=== PATIENT | female | born 1975 | race Caucasian/White ===

== ENCOUNTER 2016-10-29 10:54 | Inpatient (IN) | payer OTHER ==
[~2016-10-29] VITALS: Ht 160 cm; Wt 51.3 kg
[2016-10-29 13:01] VITALS: BP 95/74
[2016-10-29] MEDS ORDERED: ENOXAPARIN 40 MG/0.4 ML (LOVENOX) SYR SC SCH (14:15)
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
[2016-10-29] MEDS ORDERED: OXYC5SOL19 PO (15:24)
[2016-10-29] MEDS ORDERED: ENOX40DI8 SQ (15:24)
--- NOTE | 2016-10-29 16:03 | Physical Therapy Daily Note ---
PT Daily Note-Current Subjective Patient in chair in therapy gym just got through with OT, states she has pain of 5/10 in her back. Has cervical collar on. Appearance Patient in bed post tx with nurse call, family in the room, has tray. Mental Status Patient Orientation: Person, Place, Situation cervical collar Transfers Functional [place] Measure 0=Not Assessed/NA 4=Minimal Assistance 1=Total Assistance 5=Supervision or Setup 2=Maximal Assistance 6=Modified [place] 3=Moderate Assistance 7=Complete IndependenceIRFPAI Quality Coding Scale 6 Independent with activity with or without an assistive device 5 Patient requires set up or clean up by helper. Patient completes activity by themselves 4 Supervision or touching assist (CGA). [place] provide cues , steadying assist 3 The helper provides less than half the effort to complete the activity 2 The helper provides more than half the effort to complete the activity 1 Dependent. The helper does all the effort to complete an activity 7 Patient refused to complete or attempt activity 9 The patient did not perform the activity before the current illness or injury 88 Not attempted due to Medical conditions or safety concerns Transfers (B, C, W/C) (FIM): 4 Scootin Rollin Supine to/from Sit: 4 Sit to/from Stand: 4 patient needed just a little help getting a leg back into bed, CGA/Amelie standing , she is pretty unsteady, cues for safety and hand placement Gait Training Gait (FIM): 2 Distance: 60' Gait Level of Assist: 4 Gait Persons Needed: 1 Gait Assistive Device: FWW patient needs CGA/Amelie for ambulation because she is very unsteady Exercises Supine Ex: Ankle pumps, Quad Set, Straight leg raise, Hip abd/add Supine Reps: 10 Treatments bed mobility and transfers, ambulation, functional strengthening Assessment Current Status: Fair Progress improving endurance, patient is very unsteady, needs close CGA/Amelie during ambulation and transfers PT Short Term Goals Short Term Goals Time Frame: November 12, 2016 Transfers (B,C,W/C) (FIM): 4 Gait (FIM): 4 Distance (FIM): 3=150 ft Gait Assistive Device: FWW PT Invasive Cardiovascular Technologist Goals Invasive Cardiovascular Technologist Goals PT Invasive Cardiovascular Technologist Goals Time Frame: Nov 26, 2016 Transfers (B,C,W/C) (FIM): 7 Sit to Lying (QC): 6 Lying-Sitting on Side/Bed(QC): 6 Sit to Stand (QC): 6 Rollin Roll Left to Right (QC): 6 Chair/Enm-sk-Xzfil Xfer(QC): 6 Car Transfer (QC): 6 Does the Patient Walk: Yes Gait (FIM): 6 Gait distance (FIM): 3=150 ft Walk 10 feet (QC): 6 Walk 10ft-Uneven Surface(QC): 6 Walk 50ft with 2 Turns (QC): 6 Walk 150 ft (QC): 6 Gait Level of Assist: 6 Gait Assistive Device: FWW Does the Pt use WC or Scooter?: No Stairs (FIM): 6 # of Steps: 12 1 Step (curb) (QC): 6 4 Steps (QC): 6 12 Steps (QC): 6 Stairs Level Of Assist: 6 Picking up an Object (QC): 5 PT Plan Problem List Problem List: Activity Tolerance, Functional Strength, Safety, Balance, Gait, Transfer, Bed Mobility Treatment/Plan Treatment Plan: Continue Plan of Care Treatment Plan: Bed Mobility, Education, Functional Activity Maurice, Functional Strength, Group Therapy, Gait, Safety, Therapeutic Exercise, Transfers Treatment Duration: Nov 26, 2016 Visits Per Week: 10-15 Safety Risks/Education Patient Education: Gait Training, Transfer Techniques, Correct Positioning, Safety Issues Teaching Recipient: Patient Teaching Methods: Demonstration, Discussion Response to Teaching: Reinforcement Needed Time/GCodes Time In: 1545 Time Out: 1600 Total Billed Treatment Time: 15 Total Billed Treatment 1 visit GT [id number] ZAMARRIPA PT October 29, 2016 16:03
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
[2016-10-29 18:10] VITALS: BP 104/72
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
[2016-10-29] MEDS: oxyCODONE 5 MG/5 ML ORAL SOLN (roxiCODONE) 5 ML UDC PO PRN (21:36)
[2016-10-30] MEDS: oxyCODONE 5 MG/5 ML ORAL SOLN (roxiCODONE) 5 ML UDC PO PRN ×4 (05:34→19:59)
[2016-10-30 05:36] VITALS: BP 114/76
[2016-10-30 06:12] LABS: BASOPHILS % (AUTO) 0 % (0-10); EOSINOPHILS # (AUTO) 0.3 10^3/uL (0.0-0.3); EOSINOPHILS % (AUTO) 3 % (0-10); LYMPHOCYTES # (AUTO) 2.4 X 10^3 (1.0-4.0); LYMPHOCYTES % (AUTO) 28 % (12-44); MEAN CORPUSCULAR HEMOGLOBIN 30 PG (25-34); MEAN CORPUSCULAR HGB CONC 34 G/DL (32-36); MEAN CORPUSCULAR VOLUME 88 FL (80-99); MEAN PLATELET VOLUME 8.8 FL (7.4-10.4); MONOCYTES # (AUTO) 0.7 X 10^3 (0.0-1.0); MONOCYTES % (AUTO) 8 % (0-12); NEUTROPHILS # (AUTO) 5.2 X 10^3 (1.8-7.8); NEUTROPHILS % (AUTO) 61 % (42-75); PLATELET COUNT 545 10^3/uL (130-400); RED BLOOD COUNT 3.96 10^6/uL (4.35-5.85); RED CELL DISTRIBUTION WIDTH 12.9 % (10.0-14.5); WHITE BLOOD COUNT 8.6 10^3/uL (4.3-11.0)
[2016-10-30 06:38] LABS: ALANINE AMINOTRANSFERASE 37 U/L (0-55); ALBUMIN 3.8 G/DL (3.2-4.5); ANION GAP 11 MMOL/L (5-14); ASPARTATE AMINO TRANSFERASE 26 U/L (5-34); BILIRUBIN,TOTAL 0.6 MG/DL (0.1-1.0); BLOOD UREA NITROGEN 17 MG/DL (7-18); BUN/CREATININE RATIO 24; CALCIUM 9.9 MG/DL (8.5-10.1); CARBON DIOXIDE 28 MMOL/L (21-32); CHLORIDE 100 MMOL/L (98-107); CREATININE SERUM 0.72 MG/DL (0.60-1.30); GFR ESTIMATED > 60; GLUCOSE 92 MG/DL (70-105); POTASSIUM 4.2 MMOL/L (3.6-5.0); SODIUM 139 MMOL/L (135-145); TOTAL PROTEIN 6.7 G/DL (6.4-8.2)
[2016-10-30] MEDS: ENOXAPARIN 40 MG/0.4 ML (LOVENOX) SYR SC SCH (08:20)
--- NOTE | 2016-10-30 09:04 | Physical Therapy Daily Note ---
PT Daily Note-Current Subjective Pt. accompanied by Mother who shares a lot about the patients recent history and family history. Pt. quiet with grimace on face but denies any significant pain. Agrees to Rx. States that we are in [place] Numeric Pain Scale: 0-No Pain Mental Status Patient Orientation: Person Attachments: Other-See Comments (j collar) pt. needs full explanation of what to do and sequence, Transfers Functional [place] Measure 0=Not Assessed/NA 4=Minimal Assistance 1=Total Assistance 5=Supervision or Setup 2=Maximal Assistance 6=Modified [place] 3=Moderate Assistance 7=Complete IndependenceIRFPAI Quality Coding Scale 6 Independent with activity with or without an assistive device 5 Patient requires set up or clean up by helper. Patient completes activity by themselves 4 Supervision or touching assist (CGA). [place] provide cues , steadying assist 3 The helper provides less than half the effort to complete the activity 2 The helper provides more than half the effort to complete the activity 1 Dependent. The helper does all the effort to complete an activity 7 Patient refused to complete or attempt activity 9 The patient did not perform the activity before the current illness or injury 88 Not attempted due to Medical conditions or safety concerns Transfers (B, C, W/C) (FIM): 4 Scootin Rollin Supine to/from Sit: 4 Sit to/from Stand: 4 Bed to/from Chair: 4 pt. with some LOB while sit to stand losing balance and plopping down a few times, not completely getting to her feet etc, needs several tries etc. Gait Training Does the Patient Walk?: Yes Gait (FIM): 4 Distance (FIM): 3=150 ft (150x2) Gait Level of Assist: 4 Gait Persons Needed: 1 Gait Assistive Device: FWW pt. veering right with all gait, needs direction for all travel with FWW Exercises Supine Ex: Ankle pumps, Quad Set, Rolling, Glut sets, Heel Slides, Short Arc Quads, Scooting, Straight leg raise, Hip abd/add Supine Reps: 15 Seated Therapy Exercises: Ankle pumps, Sit to stand, Long arc quads, Hip flexion, Hip abd/add Seated Reps: 12 NuStep Minutes: 10 NuStep Workload: 2 Assessment Current Status: Good Progress PT Short Term Goals Short Term Goals Time Frame: November 12, 2016 Transfers (B,C,W/C) (FIM): 4 Gait (FIM): 4 Distance (FIM): 3=150 ft Gait Assistive Device: FWW PT Supervisor Sample Goals Senior Living Goals PT Supervisor Sample Goals Time Frame: Nov 26, 2016 Transfers (B,C,W/C) (FIM): 7 Sit to Lying (QC): 6 Lying-Sitting on Side/Bed(QC): 6 Sit to Stand (QC): 6 Rollin Roll Left to Right (QC): 6 Chair/Egf-yz-[id number] Xfer(QC): 6 Car Transfer (QC): 6 Does the Patient Walk: Yes Gait (FIM): 6 Gait distance (FIM): 3=150 ft Walk 10 feet (QC): 6 Walk 10ft-Uneven Surface(QC): 6 Walk 50ft with 2 Turns (QC): 6 Walk 150 ft (QC): 6 Gait Level of Assist: 6 Gait Assistive Device: FWW Does the Pt use WC or Scooter?: No Stairs (FIM): 6 # of Steps: 12 1 Step (curb) (QC): 6 4 Steps (QC): 6 12 Steps (QC): 6 Stairs Level Of Assist: 6 Picking up an Object (QC): 5 PT Plan Treatment/Plan Treatment Plan: Continue Plan of Care Treatment Plan: Bed Mobility, Education, Functional Activity Maurice, Functional Strength, Group Therapy, Gait, Safety, Therapeutic Exercise, Transfers Treatment Duration: Nov 26, 2016 Visits Per Week: 10-15 Safety Risks/Education Patient Education: Gait Training, Transfer Techniques, Correct Positioning, Disease Process (discussed the fallout of TBI and what our goals would be etc), Safety Issues Teaching Recipient: Patient Teaching Methods: Demonstration, Discussion Response to Teaching: Verbalize Understanding, Return Demonstration, Reinforcement Needed Time/GCodes Time In: 800 Time Out: 900 Total Billed Treatment Time: 60 Total Billed Treatment 1,FA25m,GT20,EX15 G Codes Necessary: MARTIN [place] LEAD JANITOR October 30, 2016 09:04
--- NOTE | 2016-10-30 09:34 | PM&R Post Admission Assessment ---
Post Admission Physician Asses The preadmission screen agrees with the post admission assessment that the patient is a good candidate for inpatient rehabilitation. The patient will have a comprehensive program of inpatient rehabilitation with a goal of maximizing level of functional independence prior to discharge home with family. The patient will have PT/OT ninety minutes per day, each discipline, five days a week for a duration of 2 weeks for gait strengthening, conditioning, balance, ADLs, any patient/family/caregiver training necessary. Speech therapy to do cognitive assessment and treat as indicted. Rehabilitation nursing to assist with bowel, bladder, skin, wound care, medication administration, pain management. Director Information to assist with discharge planning, community reentry. Lovenox SUBQ for DVT prophylaxis. She appears to be well motivated to participate in three hours of therapy a day. She should be able to tolerate three hours of therapy a day from a medical standpoint. She should benefit from the three hours of therapy a day. She has a reasonable discharge plan, reasonable discharge rehabilitation goals and a supportive family. She has various comorbidities that need to be closely monitored with medications and treatments adjusted on a daily basis as needed. These include: Back pain Hx of substance abuse Hx of abuse Barriers to discharge for this patient who had been independent prior to this are for her to be modified independent to supervision for ADLs and mobility skills prior to discharge home with family, so as to lessen the burden of the caregivers. Risks for this patient include: 1. Fall 2. Fracture 3. DVT 4. Pulmonary embolism 5. Wound infection 6. Skin breakdown 7. Contractures 8. Poorly controlled pain 9. Urinary retention 10. UTI 11. Respiratory infection 12. Aspiration Estimated Length of Stay: 14 days Prognosis: Rehab prognosis appears good for goal of discharge home with family modified independent to supervision for ADLs and mobility skills. Will ask [facility] to see patient as well Will check on patient obtaining a [place] medical card so that she may have some medical insurance upon discharge so as to facilitate Medical f/u upon discharge from rehab CINDY HUTTON MD October 30, 2016 09:34
--- NOTE | 2016-10-30 10:17 | Speech Therapy Daily Note ---
Speech Daily Progress Note Subjective The patient was seated upright in the recliner upon entrance. The patient's mother was at bedside. The patient greeted the clinician appropriately and was agreeable to participation in cognitive treatment on this date. Objective Assessment of Language Related Functional Activities (CARLOS) was initiated on this date with the below results: - Telling Time: The patient was asked to read the time on an analog clock. With mild clinician verbal prompting (to recall the use of the hands), the patient demonstrated 50% accuracy. - Using a Calendar: The patient demonstrated 100% accuracy with calendar tasks on this date, independently. - Reading Instructions: The patient demonstrated 50% accuracy with mild clinician verbal prompting throughout simple instruction tasks (reading recipes , following safety information). Orientation: The patient was oriented to month, day of week, and year ( independently). The patient used the in-room white board for identification of date. This is a great improvement from the prior day where the patient believed the month was July. Assessment Assessment Current Status: Good Progress Treatment Plan Continue Plan of Care Communication Comprehension: 4 Expression: 4 Social Cognition Social Interaction: 6 Problem Solvin Memory: 4 Speech Short Term Goals Short Term Goals Short Term Goals 1. The patient will display 90% accuracy with simple orientation information with the use of an external aide. 2. The patient will demonstrate 90% accuracy with safety problem solving, independently. 3. The patient will attend to a therapy task for a period of three minutes ( uninterrupted). 4. The patient will display 80% accuracy with structured word-finding tasks with mild clinician verbal cueing. Time Frame-STG: Two Weeks Speech Digital Media Planner Goals Digital Media Planner Goals 1. The patient will demonstrate improved cognitive linguistic skills for increased function and safety with ADL's in the least restrictive setting. Comprehension: 4 Expression: 4 Social Interaction: 6 Problem Solvin Memory: 4 Speech-Plan Treatment Plan Speech Therapy Treatment Plan: Continue Plan of Care Continue skilled speech pathology intervention to target functional cognition ( memory). Treatment Duration: Nov 26, 2016 # of days/week Four to five. Visits Per Week: Four to five. Minutes/Day (M-F): 30 Rehab Potential: Good Safety Risks/Education Teaching Recipient: Patient, Family Teaching Methods: Discussion Response to Teaching: Verbalize Understanding Education Topics Provided: Plan, Results, Recommendations Time Speech Therapy Time In: 09:15 Speech Therapy Time Out: 09:45 Total Billed Time: 30 Billed Treatment Time 1, HERMINIA HORN October 30, 2016 10:17
--- NOTE | 2016-10-30 11:16 | Occupational Ther Daily Note ---
OT Current Status-Daily Note Subjective Pt seen in room, up in recliner, agreeable to OT. Pt reported upper back pain but did not describe it. Appearance Alert, cooperative, more animated Mental Status/Objective Functional [place] Measure 0=Not Assessed/NA 4=Minimal Assistance 1=Total Assistance 5=Supervision or Setup 2=Maximal Assistance 6=Modified [place] 3=Moderate Assistance 7=Complete [place] ADL-Treatment Pt told speech therapist earlier that she was going to get a shower today but did not recall this when OT entered room. Pt showered with cervical collar on except needed off to remove her shirt and sports bra, to wash and dry neck and to change pads to dry ones. Functional [place] Measure 0=Not Assessed/NA 4=Minimal Assistance 1=Total Assistance 5=Supervision or Setup 2=Maximal Assistance 6=Modified [place] 3=Moderate Assistance 7=Complete IndependenceIRFPAI Quality Coding Scale 6 Independent with activity with or without an assistive device 5 Patient requires set up or clean up by helper. Patient completes activity by themselves 4 Supervision or touching assist (CGA). [place] provide cues , steadying assist 3 The helper provides less than half the effort to complete the activity 2 The helper provides more than half the effort to complete the activity 1 Dependent. The helper does all the effort to complete an activity 7 Patient refused to complete or attempt activity 9 The patient did not perform the activity before the current illness or injury 88 Not attempted due to Medical conditions or safety concerns Eating (FIM): 5 (Pt report) Eating (QC): 5 Grooming (FIM): 5 (SBA standing at sink to brush teeth (balancing with counter top and FWW). Washed face and hands in shower. Brushed hair setup. No makeup applied) Oral Hygiene (QC): 4 (SBA) Bathing (FIM): 4 (Pt washed and dried all parts but needed CGA when standing to wash bottom, due to decreased balance. Shower bench, grab bars, hand held shower. Skilled cues and supervision to sit to bathe.) Shower/Bathe Self (QC): 4 Upper Body (FIM): 4 (Needed a little help to get sports bra and t shirt off over cervical collar so collar removed. Able to get shirt on over collar with setup. Also able to hook bra in front and turn it around) Upper Body Dressing (QC): 4 Lower Body Dressing (FIM): 4 (CGA when standing to pull pants up, FWW. Able to get legs into pants and pull them up herself, CGA. Able to get slipper socks off and on setup) Lower Body Dressing (QC): 4 On/Off Footwear (QC): 5 Transfers (B, C, W/C) (FIM): 4 (CGA, FWW. SKilled cues for hand placement. ) Shower Transfer(FIM): 4 (CGA, pt educ for hand placement. Shower bench, grab bars) Other Treatment Pt walked with CGA, FWW to gym (walker tended to veer to the right). Stand to sit with CGA,chair with arms. Vision screened, with no problems noted with visual field, convergence, tracking. Pt reported no double vision. Pt did 10 minutes bilat UE exercise on arm bike, with a couple brief breaks, to strengthen arms and to help with L elbow and shoulder movement. Pt seems to be more comfortable extending elbow during activities. Pt needed skilled cues for hand placement to stand. Pt walked back to room, CGA, FWW and transferred into bed with CGA. Pt left up in bed, 4 rails up, bed alarm on, all needs met. Education OT Patient Education: Exercise program, Modified ADL techniques, Progress toward Goal/Update tx plan, Purpose of tx/functional activities, Reviewed precautions, Safety issues, Transfer techniques Teaching Recipient: Patient Teaching Methods: Demonstration, Discussion Response to Teaching: Verbalize Understanding, Return Demonstration, Reinforcement Needed OT Short Term Goals Short Term Goals Time Frame: November 12, 2016 Grooming(FIM): 5 Toileting(FIM): 5 Toilet/Commode Transfer(FIM): 5 Additional Short Term Goals: 2-Verbalize Understanding, 3-ImproveStrength/Maurice 1=Demonstrate adherence to instructed precautions during ADL tasks. 2=Patient will verbalize/demonstrate understanding of assistive devices/ modifications for ADL. 3=Patient will improve strength/tolerance for activity to enable patient to perform ADL's. OT Analytical Engineer Goals [facility] Goals Time Frame: Nov 26, 2016 Eating (FIM): 6 Eating (QC): 6 Groomin Oral Hygiene (QC): 6 Bathing(FIM): 6 Shower/Bathe Self (QC): 6 Upper Body Dressing(FIM): 6 Upper Body Dressing (QC): 6 Lower Body Dressing(FIM): 6 Lower Body Dressing (QC): 6 On/Off Footwear (QC): 6 Toileting(FIM): 6 Toileting Hygiene (QC): 6 Toilet/Commode Transfer(FIM): 6 Toilet/Commode Transfer (QC): 6 Shower Transfer(FIM): 6 Comprehension(FIM): 4 Expression (FIM): 4 Social Interaction(FIM): 6 Problem Solving(FIM): 4 Memory(FIM): 4 Additional Goals: 2-Verbalize Understanding, 3-ImproveStrength/Maurice 1=Demonstrate adherence to instructed precautions during ADL tasks. 2=Patient will verbalize/demonstrate understanding of assistive devices/ modifications for ADL. 3=Patient will improve strength/tolerance for activity to enable patient to perform ADL's. OT Education/Plan Problem List/Assessment Pt would benefit from skilled OT to increase her independence in basic self care to allow her to safely return to her home to live with family and to decrease caregiver burden. Discharge Recommendations Plan/Recommendations: Continue POC Treatment Plan/Plan of Care Patient would benefit from OT for education, treatment and training to promote independence in ADL's, mobility, safety and/or upper extremity function for ADL' s. Plan of Care: ADL Retraining, Functional Mobility, Group Exercise/Act as Ind ( education, exercise, memory, activity tolerance, socialization, problem solving) , UE Funct Exercise/Act, UE Neuromus Re-Ed/Coord Treatment Duration: Nov 26, 2016 Visits Per Week: 10-11 Minutes/Day (M-F): 75-90 Minutes/Day (Sat/[place]): PRN Agreement: Yes Rehab Potential: Good Time/GCodes Start Time: 09:45 Stop Time: 11:00 Total Time Billed (hr/min): 75 Billed Treatment Time visit, 55 minutes ADL, 20 minutes exercise OSBALDO MORTON OT October 30, 2016 11:16
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
--- NOTE | 2016-10-30 13:19 | Physical Therapy Daily Note ---
PT Daily Note-Current Subjective Pt. is in bed with eyes closed . Dr Vásquez here. Pts Mother states she has been told by nursing she can assist her daughter to bathroom and back. Pain Numeric Pain Scale: 4 Location: Medial Location Body Site: Back Pain Description: Tightness Transfers Functional [place] Measure 0=Not Assessed/NA 4=Minimal Assistance 1=Total Assistance 5=Supervision or Setup 2=Maximal Assistance 6=Modified [place] 3=Moderate Assistance 7=Complete IndependenceIRFPAI Quality Coding Scale 6 Independent with activity with or without an assistive device 5 Patient requires set up or clean up by helper. Patient completes activity by themselves 4 Supervision or touching assist (CGA). [place] provide cues , steadying assist 3 The helper provides less than half the effort to complete the activity 2 The helper provides more than half the effort to complete the activity 1 Dependent. The helper does all the effort to complete an activity 7 Patient refused to complete or attempt activity 9 The patient did not perform the activity before the current illness or injury 88 Not attempted due to Medical conditions or safety concerns TRFs in out bed left and right with bed flat and no rails with SBA and cuing. Gait Training Does the Patient Walk?: Yes Distance (FIM): 3=150 ft (x2) Gait Level of Assist: 4 Gait Persons Needed: 1 Gait Assistive Device: FWW pt. continues to veer right and needs CGA and guidance Stair Training Stair Training: Handrails/: 2 handrails Stairs (FIM): 2 #of Steps: 4 Stairs: Pattern: Reciprocal Level of Assist: 4 needed skilled verbal instruction for stairs etc Exercises Supine Ex: Ankle pumps, Heel Slides, Hip abd/add Supine Reps: 8 Assessment Current Status: Good Progress PT Short Term Goals Short Term Goals Time Frame: November 12, 2016 Gait (FIM): 4 Distance (FIM): 3=150 ft Gait Assistive Device: FWW PT Textile Screen Printer Goals Longterm Goals PT Textile Screen Printer Goals Time Frame: Nov 26, 2016 Transfers (B,C,W/C) (FIM): 7 Sit to Lying (QC): 6 Lying-Sitting on Side/Bed(QC): 6 Sit to Stand (QC): 6 Rollin Roll Left to Right (QC): 6 Chair/Phe-zu-Qdjgd Xfer(QC): 6 Car Transfer (QC): 6 Does the Patient Walk: Yes Gait (FIM): 6 Gait distance (FIM): 3=150 ft Walk 10 feet (QC): 6 Walk 10ft-Uneven Surface(QC): 6 Walk 50ft with 2 Turns (QC): 6 Walk 150 ft (QC): 6 Gait Level of Assist: 6 Gait Assistive Device: FWW Does the Pt use WC or Scooter?: No Stairs (FIM): 6 # of Steps: 12 1 Step (curb) (QC): 6 4 Steps (QC): 6 12 Steps (QC): 6 Stairs Level Of Assist: 6 Picking up an Object (QC): 5 PT Plan Treatment/Plan Treatment Plan: Continue Plan of Care Treatment Plan: Bed Mobility, Education, Functional Activity Maurice, Functional Strength, Group Therapy, Gait, Safety, Therapeutic Exercise, Transfers Treatment Duration: Nov 26, 2016 Visits Per Week: 10-15 Safety Risks/Education Patient Education: Gait Training, Transfer Techniques, Steps Teaching Recipient: Patient, Family Teaching Methods: Demonstration, Discussion Response to Teaching: Verbalize Understanding, Return Demonstration, Reinforcement Needed Mother trained in use of gait belt and safe management of pt. for sup to sit TRFs as well as gait, this INSTRUMENT MECHANIC WEAP[employer] SYSTEM will need further training observing Mother to feel confident she is adept at managing her Time/GCodes Time In: 1255 Time Out: 1315 Total Billed Treatment Time: 20 Total Billed Treatment 1,FA20m G Codes Necessary: MARTIN [place] INSTRUMENT MECH[employer]IC WE[employer] SYSTEM October 30, 2016 13:19
[2016-10-30 18:39] VITALS: BP 110/72
[2016-10-31 06:11] VITALS: BP 107/69
[2016-10-31] MEDS: oxyCODONE 5 MG/5 ML ORAL SOLN (roxiCODONE) 5 ML UDC PO PRN ×3 (07:05→19:03)
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
[2016-10-31] MEDS: ENOXAPARIN 40 MG/0.4 ML (LOVENOX) SYR SC SCH (09:36)
--- NOTE | 2016-10-31 10:25 | Occupational Ther Daily Note ---
OT Current Status-Daily Note Subjective Pt alert, lying in bed. Mother present in room. Pt agreed to therapy. No c/o pain. Mental Status/Objective Patient Orientation: Person, Place, Situation Functional [place] Measure 0=Not Assessed/NA 4=Minimal Assistance 1=Total Assistance 5=Supervision or Setup 2=Maximal Assistance 6=Modified [place] 3=Moderate Assistance 7=Complete [place] ADL-Treatment Pt requested sponge bath. Pt ambulated into bathroom and sat at sink with CGA using FWW. Pt completed sponge bathe sitting at sink. Pt was able to open bottle of soap and sequence steps of bathing. SBA while pt standing to cleanse buttocks and sylvia area. After set up, pt able to dress upper/lower body with SBA. Completed oral care and grooming sitting at sink. Pt ambulated back to bed and was able to complete bed mobility with HOB slightly raised and bed rails. Functional [place] Measure 0=Not Assessed/NA 4=Minimal Assistance 1=Total Assistance 5=Supervision or Setup 2=Maximal Assistance 6=Modified [place] 3=Moderate Assistance 7=Complete IndependenceIRFPAI Quality Coding Scale 6 Independent with activity with or without an assistive device 5 Patient requires set up or clean up by helper. Patient completes activity by themselves 4 Supervision or touching assist (CGA). [place] provide cues , steadying assist 3 The helper provides less than half the effort to complete the activity 2 The helper provides more than half the effort to complete the activity 1 Dependent. The helper does all the effort to complete an activity 7 Patient refused to complete or attempt activity 9 The patient did not perform the activity before the current illness or injury 88 Not attempted due to Medical conditions or safety concerns Grooming (FIM): 6 Bathing (FIM): 5 Upper Body (FIM): 5 Lower Body Dressing (FIM): 5 Transfers (B, C, W/C) (FIM): 4 Other Treatment Pt stated it would be easier for her to sit in chair to complete fine motor and cognition tasks. Pt worked on memory tasks and was able to to match 3 pictures 5 out of 10x. Pt then worked on pinch strength and finger dexterity with matching colored clothes pins. After therapy, pt sitting in chair with call light/phone in reach. Mother present in room. OT Short Term Goals Short Term Goals Time Frame: November 12, 2016 Grooming(FIM): 5 Toileting(FIM): 5 Toilet/Commode Transfer(FIM): 5 Additional Short Term Goals: 2-Verbalize Understanding, 3-ImproveStrength/Maurice 1=Demonstrate adherence to instructed precautions during ADL tasks. 2=Patient will verbalize/demonstrate understanding of assistive devices/ modifications for ADL. 3=Patient will improve strength/tolerance for activity to enable patient to perform ADL's. OT Adult Daycare Coordinator Goals Adult Daycare Coordinator Goals Time Frame: Nov 26, 2016 Eating (FIM): 6 Eating (QC): 6 Groomin Oral Hygiene (QC): 6 Bathing(FIM): 6 Shower/Bathe Self (QC): 6 Upper Body Dressing(FIM): 6 Upper Body Dressing (QC): 6 Lower Body Dressing(FIM): 6 Lower Body Dressing (QC): 6 On/Off Footwear (QC): 6 Toileting(FIM): 6 Toileting Hygiene (QC): 6 Toilet/Commode Transfer(FIM): 6 Toilet/Commode Transfer (QC): 6 Shower Transfer(FIM): 6 Comprehension(FIM): 4 Expression (FIM): 4 Social Interaction(FIM): 6 Problem Solving(FIM): 4 Memory(FIM): 4 Additional Goals: 2-Verbalize Understanding, 3-ImproveStrength/Maurice 1=Demonstrate adherence to instructed precautions during ADL tasks. 2=Patient will verbalize/demonstrate understanding of assistive devices/ modifications for ADL. 3=Patient will improve strength/tolerance for activity to enable patient to perform ADL's. OT Education/Plan Problem List/Assessment Pt would benefit from skilled OT to increase her independence in basic self care to allow her to safely return to her home to live with family and to decrease caregiver burden. Discharge Recommendations Plan/Recommendations: Continue POC Treatment Plan/Plan of Care Patient would benefit from OT for education, treatment and training to promote independence in ADL's, mobility, safety and/or upper extremity function for ADL' s. Plan of Care: ADL Retraining, Functional Mobility, Group Exercise/Act as Ind ( education, exercise, memory, activity tolerance, socialization, problem solving) , UE Funct Exercise/Act, UE Neuromus Re-Ed/Coord Treatment Duration: Nov 26, 2016 Visits Per Week: 10-11 Minutes/Day (M-F): 75-90 Minutes/Day (Sat/[place]): PRN Agreement: Yes Rehab Potential: Good Time/GCodes Start Time: 08:00 Stop Time: 09:15 Total Time Billed (hr/min): 75 Billed Treatment Time 1 visit-ADL 4 (60 min) NM 1 (15 min) ASHANTI VEGA October 31, 2016 10:25
--- NOTE | 2016-10-31 10:31 | Physical Therapy Daily Note ---
PT Daily Note-Current Subjective Patient in chair pre tx, agrees to PT, has pain of 4/10 in her right posterior shoulder. Appearance Patient in chair post tx, she has to use the restroom and her mother will take her to do that. Mental Status Patient Orientation: Person, Place, Situation cervical collar Transfers Functional [place] Measure 0=Not Assessed/NA 4=Minimal Assistance 1=Total Assistance 5=Supervision or Setup 2=Maximal Assistance 6=Modified [place] 3=Moderate Assistance 7=Complete IndependenceIRFPAI Quality Coding Scale 6 Independent with activity with or without an assistive device 5 Patient requires set up or clean up by helper. Patient completes activity by themselves 4 Supervision or touching assist (CGA). [place] provide cues , steadying assist 3 The helper provides less than half the effort to complete the activity 2 The helper provides more than half the effort to complete the activity 1 Dependent. The helper does all the effort to complete an activity 7 Patient refused to complete or attempt activity 9 The patient did not perform the activity before the current illness or injury 88 Not attempted due to Medical conditions or safety concerns Transfers (B, C, W/C) (FIM): 4 Sit to/from Stand: 4 CGA, but occasional min assist for stand pivot transfer due to balance impairments Gait Training Gait (FIM): 4 Distance: 400', 200' Gait Level of Assist: 4 Gait Persons Needed: 1 Gait Assistive Device: FWW CGA/Amelie for balance, patient seems to have some right neglect and will veer to the right, continually needing to readjust her walker. Patient will often get her right wheel caught on obstacles either from right neglect or not being able to see directly in front of her because of the cervical collar or a combination of both. Balance Picking up an Object (QC): 4 (CGA) Exercises NuStep Minutes: 15 NuStep Workload: 5 Neuromuscular Patient performed an activity that involved finding and picking up cones from various heights and locations, one at a time and walking to put them on a counter, no assistive device, required min assist for balance Treatments transfer training, functional strengthening, balance training, ambulation Assessment Current Status: Fair Progress Patient does need an occasional rest break due to fatigue but her endurance is improving quickly PT Short Term Goals Short Term Goals Time Frame: November 12, 2016 Gait (FIM): 4 Distance (FIM): 3=150 ft Gait Assistive Device: FWW PT Intermediate Goals Intermediate Goals PT Refrigeration Engineer Goals Time Frame: Nov 26, 2016 Transfers (B,C,W/C) (FIM): 7 Sit to Lying (QC): 6 Lying-Sitting on Side/Bed(QC): 6 Sit to Stand (QC): 6 Rollin Roll Left to Right (QC): 6 Chair/Mmr-gi-Jrrls Xfer(QC): 6 Car Transfer (QC): 6 Does the Patient Walk: Yes Gait (FIM): 6 Gait distance (FIM): 3=150 ft Walk 10 feet (QC): 6 Walk 10ft-Uneven Surface(QC): 6 Walk 50ft with 2 Turns (QC): 6 Walk 150 ft (QC): 6 Gait Level of Assist: 6 Gait Assistive Device: FWW Does the Pt use WC or Scooter?: No Stairs (FIM): 6 # of Steps: 12 1 Step (curb) (QC): 6 4 Steps (QC): 6 12 Steps (QC): 6 Stairs Level Of Assist: 6 Picking up an Object (QC): 5 PT Plan Problem List Problem List: Activity Tolerance, Functional Strength, Safety, Balance, Gait, Transfer Treatment/Plan Treatment Plan: Continue Plan of Care Treatment Plan: Bed Mobility, Education, Functional Activity [place], Functional Strength, Group Therapy, Gait, Safety, Therapeutic Exercise, Transfers Treatment Duration: Nov 26, 2016 Visits Per Week: 10-15 Safety Risks/Education Patient Education: Gait Training, Transfer Techniques, Correct Positioning, Safety Issues Teaching Recipient: Patient Teaching Methods: Demonstration, Discussion Response to Teaching: Reinforcement Needed Time/GCodes Time In: 945 Time Out: 1030 Total Billed Treatment Time: 45 Total Billed Treatment 1 visit EX 15' NM 10' GT 20' JAQUAN JO PT October 31, 2016 10:31
--- NOTE | 2016-10-31 10:33 | Speech Therapy Daily Note ---
Speech Daily Progress Note Subjective The patient was seated upright in chair upon entrance. The patient greeted the clinician appropriately and was agreeable to cognitive therapy on this date. The patient's mother was present for the session. Objective CARLOS functional tasks were continued on this date with the below results: - Counting Money: The patient demonstrated 60% accuracy with moderate clinician verbal cueing while counting change and adding bill amounts. - Addressing an Envelope: The patient demonstrated 100% accuracy independently with addressing an envelope which contained her return address, as well. - Solving Daily Math Problems: The patient demonstrated 20% accuracy with moderate clinician verbal cueing with routine math problems (calculating payments, hours of sleep, etc.). The patient was provided a pencil and paper. Orientation: The patient stated the month was July and the year was 2016. Additionally, the patient believed she was in [place], [place]. The patient was reoriented by the clinician using the white-board as a demonstration and review of appropriate external aid use. Assessment Assessment Current Status: Fair Progress Treatment Plan Continue Plan of Care Communication Comprehension: 3 Expression: 4 Social Cognition Social Interaction: 4 Problem Solvin Memory: 2 Speech Short Term Goals Short Term Goals Short Term Goals 1. The patient will display 90% accuracy with simple orientation information with the use of an external aide. 2. The patient will demonstrate 90% accuracy with safety problem solving, independently. 3. The patient will attend to a therapy task for a period of three minutes ( uninterrupted). 4. The patient will display 80% accuracy with structured word-finding tasks with mild clinician verbal cueing. Time Frame-STG: Two Weeks Speech Gluing [place]man Goals Longterm Goals 1. The patient will demonstrate improved cognitive linguistic skills for increased function and safety with ADL's in the least restrictive setting. Comprehension: 4 Expression: 4 Social Interaction: 6 Problem Solvin Memory: 4 Speech-Plan Treatment Plan Speech Therapy Treatment Plan: Continue Plan of Care Continue skilled speech pathology intervention to target functional problem solving, memory, and attention. Treatment Duration: Nov 26, 2016 # of days/week Four to five. Visits Per Week: Four to five. Minutes/Day (M-F): 30 Rehab Potential: Good Safety Risks/Education Teaching Recipient: Patient, Family Teaching Methods: Demonstration, Discussion Response to Teaching: Verbalize Understanding, Return Demonstration Education Topics Provided: External Memory Strategy Time Speech Therapy Time In: 09:15 Speech Therapy Time Out: 09:45 Total Billed Time: 30 Billed Treatment Time 1, HERMINIA HORN October 31, 2016 10:33
--- NOTE | 2016-10-31 11:14 | Physical Therapy Daily Note ---
PT Daily Note-Current Subjective Patient in chair pre tx, agrees to PT, has pain of 3/10 in right posterior shoulder. Appearance Patient in bed post tx with nurse call, phone, tray, family in the room, all needs met. Mental Status Patient Orientation: Person, Place, Situation cervical collar Transfers Functional [place] Measure 0=Not Assessed/NA 4=Minimal Assistance 1=Total Assistance 5=Supervision or Setup 2=Maximal Assistance 6=Modified [place] 3=Moderate Assistance 7=Complete IndependenceIRFPAI Quality Coding Scale 6 Independent with activity with or without an assistive device 5 Patient requires set up or clean up by helper. Patient completes activity by themselves 4 Supervision or touching assist (CGA). [place] provide cues , steadying assist 3 The helper provides less than half the effort to complete the activity 2 The helper provides more than half the effort to complete the activity 1 Dependent. The helper does all the effort to complete an activity 7 Patient refused to complete or attempt activity 9 The patient did not perform the activity before the current illness or injury 88 Not attempted due to Medical conditions or safety concerns Transfers (B, C, W/C) (FIM): 4 Scootin Rollin Supine to/from Sit: 5 Sit to/from Stand: 4 cues for pushing up from armrests Gait Training Gait (FIM): 4 Distance: 1000'x2 Gait Level of Assist: 4 Gait Persons Needed: 1 Gait Assistive Device: FWW Patient needs min assist for occasional instability, tends to veer to the right with walker, needs to constantly readjust walker, patient ambulated over uneven surfaces (rugs, uneven sidewalks) Treatments bed mobility and transfers, ambulation Assessment Current Status: Fair Progress improving endurance PT Short Term Goals Short Term Goals Time Frame: November 12, 2016 Gait (FIM): 4 Distance (FIM): 3=150 ft Gait Assistive Device: FWW PT Solar Sales Rep Goals Mcfp Goals PT Solar Sales Rep Goals Time Frame: Nov 26, 2016 Transfers (B,C,W/C) (FIM): 7 Sit to Lying (QC): 6 Lying-Sitting on Side/Bed(QC): 6 Sit to Stand (QC): 6 Rollin Roll Left to Right (QC): 6 Chair/Ogw-sr-Uxnkb Xfer(QC): 6 Car Transfer (QC): 6 Does the Patient Walk: Yes Gait (FIM): 6 Gait distance (FIM): 3=150 ft Walk 10 feet (QC): 6 Walk 10ft-Uneven Surface(QC): 6 Walk 50ft with 2 Turns (QC): 6 Walk 150 ft (QC): 6 Gait Level of Assist: 6 Gait Assistive Device: FWW Does the Pt use WC or Scooter?: No Stairs (FIM): 6 # of Steps: 12 1 Step (curb) (QC): 6 4 Steps (QC): 6 12 Steps (QC): 6 Stairs Level Of Assist: 6 Picking up an Object (QC): 5 PT Plan Problem List Problem List: Activity Tolerance, Functional Strength, Safety, Balance, Gait, Transfer Treatment/Plan Treatment Plan: Continue Plan of Care Treatment Plan: Bed Mobility, Education, Functional Activity [place], Functional Strength, Group Therapy, Gait, Safety, Therapeutic Exercise, Transfers Treatment Duration: Nov 26, 2016 Visits Per Week: 10-15 Safety Risks/Education Patient Education: Gait Training, Transfer Techniques, Safety Issues Teaching Recipient: Patient Teaching Methods: Demonstration, Discussion Response to Teaching: Reinforcement Needed Time/GCodes Time In: 1040 Time Out: 1110 Total Billed Treatment Time: 30 Total Billed Treatment 1 visit GT 30' JAQUAN JO PT October 31, 2016 11:14
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
[2016-10-31 18:21] VITALS: BP 117/79
[2016-10-31] MEDS: ACETAMINOPHEN 325 MG TABLET/CAPLET (TYLENOL) PO PRN (21:55)
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
[2016-11-01 05:00] VITALS: BP 105/68
[2016-11-01] MEDS: ENOXAPARIN 40 MG/0.4 ML (LOVENOX) SYR SC SCH (07:48)
--- NOTE | 2016-11-01 08:45 | Physical Therapy Daily Note ---
PT Daily Note-Current Subjective Patient in bed pre tx, agrees to PT, has LBP of 7/10. Appearance Patient BTB post tx with nurse call, tray, bed alarm on, family in the room. Mental Status Patient Orientation: Person, Place, Situation cervical collar Transfers Functional [place] Measure 0=Not Assessed/NA 4=Minimal Assistance 1=Total Assistance 5=Supervision or Setup 2=Maximal Assistance 6=Modified [place] 3=Moderate Assistance 7=Complete IndependenceIRFPAI Quality Coding Scale 6 Independent with activity with or without an assistive device 5 Patient requires set up or clean up by helper. Patient completes activity by themselves 4 Supervision or touching assist (CGA). [place] provide cues , steadying assist 3 The helper provides less than half the effort to complete the activity 2 The helper provides more than half the effort to complete the activity 1 Dependent. The helper does all the effort to complete an activity 7 Patient refused to complete or attempt activity 9 The patient did not perform the activity before the current illness or injury 88 Not attempted due to Medical conditions or safety concerns Transfers (B, C, W/C) (FIM): 4 Scootin Rollin Supine to/from Sit: 6 Sit to/from Stand: 4 CGA with sit to stand and transfers Gait Training Gait (FIM): 4 Distance: 500'x2 Gait Level of Assist: 4 Gait Persons Needed: 1 Gait Assistive Device: FWW CGA, patient still has to constantly readjust walker because she veers to the right side Exercises NuStep Minutes: 15 NuStep Workload: 5 Treatments bed mobility and transfers, ambulation, functional strengthening Assessment Current Status: Fair Progress improved bed mobility PT Short Term Goals Short Term Goals Time Frame: November 12, 2016 Gait (FIM): 4 Distance (FIM): 3=150 ft Gait Assistive Device: FWW PT Bilingual Teacher Assistant Goals Halfway Goals PT Halfway Goals Time Frame: Nov 26, 2016 Transfers (B,C,W/C) (FIM): 7 Sit to Lying (QC): 6 Lying-Sitting on Side/Bed(QC): 6 Sit to Stand (QC): 6 Rollin Roll Left to Right (QC): 6 Chair/Tiw-pb-Gddcc Xfer(QC): 6 Car Transfer (QC): 6 Does the Patient Walk: Yes Gait (FIM): 6 Gait distance (FIM): 3=150 ft Walk 10 feet (QC): 6 Walk 10ft-Uneven Surface(QC): 6 Walk 50ft with 2 Turns (QC): 6 Walk 150 ft (QC): 6 Gait Level of Assist: 6 Gait Assistive Device: FWW Does the Pt use WC or Scooter?: No Stairs (FIM): 6 # of Steps: 12 1 Step (curb) (QC): 6 4 Steps (QC): 6 12 Steps (QC): 6 Stairs Level Of Assist: 6 Picking up an Object (QC): 5 PT Plan Problem List Problem List: Activity Tolerance, Functional Strength, Safety, Balance, Gait, Transfer Treatment/Plan Treatment Plan: Continue Plan of Care Treatment Plan: Bed Mobility, Education, Functional Activity Maurice, Functional Strength, Group Therapy, Gait, Safety, Therapeutic Exercise, Transfers Treatment Duration: Nov 26, 2016 Visits Per Week: 10-15 Minutes/Day (M-F): 60-90 Minutes/Day (Sat/[place]): prn Safety Risks/Education Patient Education: Gait Training, Transfer Techniques, Correct Positioning, Safety Issues Teaching Recipient: Patient Teaching Methods: Demonstration, Discussion Response to Teaching: Reinforcement Needed Time/GCodes Time In: 800 Time Out: 845 Total Billed Treatment Time: 45 Total Billed Treatment 1 visit EX 15' GT 30' JAQUAN JO PT November 01, 2016 08:45
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
[2016-11-01] MEDS: oxyCODONE 5 MG/5 ML ORAL SOLN (roxiCODONE) 5 ML UDC PO PRN ×2 (09:41→21:13)
--- NOTE | 2016-11-01 09:56 | Speech Therapy Daily Note ---
Speech Daily Progress Note Subjective The patient was seated upright in bed upon entrance. The patient greeted the clinician appropriately and was agreeable to participation in the cognitive treatment session. To note, the patient's mother was present at bedside. Objective Orientation: At the initiation of the session, the patient was able to state the month, year, and day of week. At the close of the session, the patient was able to state the year and day of week, however, stated the month was June. Once the patient was directed to the in-room white board, the patient was able to accurately identify the current month. Short-Term Recall: The patient was read short paragraphs (three to four sentences in length). Following the paragraphs, the patient was asked a specific question with the answer located in the recently read article. The patient demonstrated 30% accuracy with three to four elements and 80% accuracy with two element recall with moderate clinician verbal cueing. Assessment Assessment Current Status: Fair Progress Treatment Plan Continue Plan of Care Communication Comprehension: 4 Expression: 4 Social Cognition Social Interaction: 4 Problem Solvin Memory: 3 Speech Short Term Goals Short Term Goals Short Term Goals 1. The patient will display 90% accuracy with simple orientation information with the use of an external aide. 2. The patient will demonstrate 90% accuracy with safety problem solving, independently. 3. The patient will attend to a therapy task for a period of three minutes ( uninterrupted). 4. The patient will display 80% accuracy with structured word-finding tasks with mild clinician verbal cueing. Time Frame-STG: Two Weeks Speech Brood Station Manager Goals Senior Living Goals 1. The patient will demonstrate improved cognitive linguistic skills for increased function and safety with ADL's in the least restrictive setting. Comprehension: 4 Expression: 4 Social Interaction: 6 Problem Solvin Memory: 4 Speech-Plan Treatment Plan Speech Therapy Treatment Plan: Continue Plan of Care Continue skilled speech pathology intervention to target functional problem solving and memory. Treatment Duration: Nov 26, 2016 # of days/week Four to five. Visits Per Week: Four to five. Minutes/Day (M-F): 30 Rehab Potential: Good Safety Risks/Education Teaching Recipient: Patient, Family Teaching Methods: Discussion Response to Teaching: Verbalize Understanding, Return Demonstration Education Topics Provided: External Memory Aide Time Speech Therapy Time In: 08:45 Speech Therapy Time Out: 09:15 Total Billed Time: 30 Billed Treatment Time 1, HERMINIA HORN November 01, 2016 09:56
--- NOTE | 2016-11-01 10:55 | Occupational Ther Daily Note ---
OT Current Status-Daily Note Subjective Pt seen in room, up in bed, agreeable to OT and showering. No pain mentioned. Appearance Alert, cooperative, still looks to mother for direction in answering questions Mental Status/Objective Functional [place] Measure 0=Not Assessed/NA 4=Minimal Assistance 1=Total Assistance 5=Supervision or Setup 2=Maximal Assistance 6=Modified [place] 3=Moderate Assistance 7=Complete [place] ADL-Treatment Mother asked about therapeutic pass for the weekend. She was trained in putting on gait belt and using it while walking with patient during ADLs. She walked pt safely to the sink, to the gym, to the toilet and back to bed, using gait belt and FWW. She said that she felt comfortable walking with her daughter while on pass tomorrow. . Functional [place] Measure 0=Not Assessed/NA 4=Minimal Assistance 1=Total Assistance 5=Supervision or Setup 2=Maximal Assistance 6=Modified [place] 3=Moderate Assistance 7=Complete IndependenceIRFPAI Quality Coding Scale 6 Independent with activity with or without an assistive device 5 Patient requires set up or clean up by helper. Patient completes activity by themselves 4 Supervision or touching assist (CGA). [place] provide cues , steadying assist 3 The helper provides less than half the effort to complete the activity 2 The helper provides more than half the effort to complete the activity 1 Dependent. The helper does all the effort to complete an activity 7 Patient refused to complete or attempt activity 9 The patient did not perform the activity before the current illness or injury 88 Not attempted due to Medical conditions or safety concerns Grooming (FIM): 4 (CGA to SBA, standing at sink to brush teeth, FWW. Washed face and hands during shower. ) Bathing (FIM): 5 (Pt was able to wash and dry all parts, using shower bench, grab bars, hand held shower. Assist to turn water on and off. SBA when standing to wash bottom) Upper Body (FIM): 5 (Sequenced clothing correctly. She was able to get shirt off and on over cervical collar and hook bra in back.) Lower Body Dressing (FIM): 5 (SBA when standing to pull pants up, FWW. Pt educ for hand placement. Socks on without assistance) Toileting (FIM): 5 (SBA, clothing management and hygiene. Tall toilet, grab bar , FWW) Toilet/Commode Transfer (FIM): 4 (CA, tall toilet, grab bar, FWW) Other Treatment Pt education several times to push up from surface, not pull up with FWW. Pt walked CGA for safety, FWW to gym. Worked with fine motor activities with cognitive and visual perceptual components, including recreating designs in 3 dimension with 1" blocks, playing dominoes (she learned instructions quickly) and stringing 1/4" beads. All to help with increased use of bilat UEs. Pt was returned to bed, 4 rails up, mother inroom so bed alarm not on, all needs met. Education OT Patient Education: Modified ADL techniques, Progress toward Goal/Update tx plan, Purpose of tx/functional activities, Transfer techniques, Use of adapted equipment Teaching Recipient: Patient, Family (mother) Teaching Methods: Demonstration, Discussion Response to Teaching: Verbalize Understanding, Return Demonstration (mother), Reinforcement Needed OT Short Term Goals Short Term Goals Time Frame: November 12, 2016 Grooming(FIM): 5 Toileting(FIM): 5 Toilet/Commode Transfer(FIM): 5 Additional Short Term Goals: 2-Verbalize Understanding, 3-ImproveStrength/Maurice 1=Demonstrate adherence to instructed precautions during ADL tasks. 2=Patient will verbalize/demonstrate understanding of assistive devices/ modifications for ADL. 3=Patient will improve strength/tolerance for activity to enable patient to perform ADL's. OT [place] Goals [place] Goals Time Frame: Nov 26, 2016 Eating (FIM): 6 Eating (QC): 6 Groomin Oral Hygiene (QC): 6 Bathing(FIM): 6 Shower/Bathe Self (QC): 6 Upper Body Dressing(FIM): 6 Upper Body Dressing (QC): 6 Lower Body Dressing(FIM): 6 Lower Body Dressing (QC): 6 On/Off Footwear (QC): 6 Toileting(FIM): 6 Toileting Hygiene (QC): 6 Toilet/Commode Transfer(FIM): 6 Toilet/Commode Transfer (QC): 6 Shower Transfer(FIM): 6 Comprehension(FIM): 4 Expression (FIM): 4 Social Interaction(FIM): 6 Problem Solving(FIM): 4 Memory(FIM): 4 Additional Goals: 2-Verbalize Understanding, 3-ImproveStrength/Maurice 1=Demonstrate adherence to instructed precautions during ADL tasks. 2=Patient will verbalize/demonstrate understanding of assistive devices/ modifications for ADL. 3=Patient will improve strength/tolerance for activity to enable patient to perform ADL's. OT Education/Plan Problem List/Assessment Pt would benefit from skilled OT to increase her independence in basic self care to allow her to safely return to her home to live with family and to decrease caregiver burden. Discharge Recommendations Plan/Recommendations: Continue POC Treatment Plan/Plan of Care Patient would benefit from OT for education, treatment and training to promote independence in ADL's, mobility, safety and/or upper extremity function for ADL' s. Plan of Care: ADL Retraining, Functional Mobility, Group Exercise/Act as Ind ( education, exercise, memory, activity tolerance, socialization, problem solving) , UE Funct Exercise/Act, UE Neuromus Re-Ed/Coord Treatment Duration: Nov 26, 2016 Visits Per Week: 10-11 Minutes/Day (M-F): 75-90 Minutes/Day (Sat/[place]): PRN Agreement: Yes Rehab Potential: Good Time/GCodes Start Time: 09:30 Stop Time: 10:45 Total Time Billed (hr/min): 75 Billed Treatment Time visit, ADL 45, neuromotor 30 OSBALDO MORTON OT November 01, 2016 10:54
--- NOTE | 2016-11-01 13:59 | Therapy Group Daily Note ---
Therapy Daily Group Note Patient Education Topic Exercises (patient led exercises with written, illustrated cards) Exercises LE Seated Exercise, UE Exercise Other/Notes Patient ambulated with FWW SBA to and from Group activity. She actively participated with Group Therapy and was very social with all patients and staff. Patient was able to demonstrate and read the exercise cards to the Group as they performed each exercise. During the Group activity, PT educated the group on the benefits of exercise and mobility to promote healing and increase circulation. Start Time: 13:00 Stop Time: 13:40 Total Billed Treatment Time: 40 Total Billed Treatment 1 visit GRP 40 min SURENDRA SINGER PT November 01, 2016 13:59
[2016-11-01 16:41] VITALS: BP 115/80
[2016-11-01] MEDS: ACETAMINOPHEN 325 MG TABLET/CAPLET (TYLENOL) PO PRN (16:54)
[2016-11-02 06:00] VITALS: BP 107/69
[2016-11-02] MEDS: ENOXAPARIN 40 MG/0.4 ML (LOVENOX) SYR SC SCH (08:48)
[2016-11-02] MEDS: oxyCODONE 5 MG/5 ML ORAL SOLN (roxiCODONE) 5 ML UDC PO PRN ×2 (09:04→18:38)
--- NOTE | 2016-11-02 11:14 | Physical Therapy Daily Note ---
PT Daily Note-Current Subjective Pt. in bed, readily agrees to therapy. She denies pain. Mental Status Patient Orientation: Person, Place, Time, Situation cervical collar Transfers Functional [place] Measure 0=Not Assessed/NA 4=Minimal Assistance 1=Total Assistance 5=Supervision or Setup 2=Maximal Assistance 6=Modified [place] 3=Moderate Assistance 7=Complete IndependenceIRFPAI Quality Coding Scale 6 Independent with activity with or without an assistive device 5 Patient requires set up or clean up by helper. Patient completes activity by themselves 4 Supervision or touching assist (CGA). [place] provide cues , steadying assist 3 The helper provides less than half the effort to complete the activity 2 The helper provides more than half the effort to complete the activity 1 Dependent. The helper does all the effort to complete an activity 7 Patient refused to complete or attempt activity 9 The patient did not perform the activity before the current illness or injury 88 Not attempted due to Medical conditions or safety concerns Transfers (B, C, W/C) (FIM): 5 Supine to/from Sit: 6 Sit to/from Stand: 5 Gait Training Does the Patient Walk?: Yes Gait (FIM): 4 Distance (FIM): 3=150 ft Distance: 2 x 300 ft Gait Level of Assist: 4 Gait Persons Needed: 1 Gait Assistive Device: FWW good gait speed, frequent lateral deviations in path but no kyleigh LOB Exercises NuStep Minutes: 10 NuStep Workload: 5 Treatments gait, exercise Assessment Current Status: Good Progress Pt. did well with gait and exercise. She is mildly unsteady during gait requiring CGA. Pt. returned to seated position in bed, call light in reach and all needs met. PT Short Term Goals Short Term Goals Time Frame: November 12, 2016 Gait (FIM): 4 Distance (FIM): 3=150 ft Gait Assistive Device: FWW PT Product Support Engineer Goals Retirement Goals PT Product Support Engineer Goals Time Frame: Nov 26, 2016 Transfers (B,C,W/C) (FIM): 7 Sit to Lying (QC): 6 Lying-Sitting on Side/Bed(QC): 6 Sit to Stand (QC): 6 Rollin Roll Left to Right (QC): 6 Chair/Wwa-ig-Sjspd Xfer(QC): 6 Car Transfer (QC): 6 Does the Patient Walk: Yes Gait (FIM): 6 Gait distance (FIM): 3=150 ft Walk 10 feet (QC): 6 Walk 10ft-Uneven Surface(QC): 6 Walk 50ft with 2 Turns (QC): 6 Walk 150 ft (QC): 6 Gait Level of Assist: 6 Gait Assistive Device: FWW Does the Pt use WC or Scooter?: No Stairs (FIM): 6 # of Steps: 12 1 Step (curb) (QC): 6 4 Steps (QC): 6 12 Steps (QC): 6 Stairs Level Of Assist: 6 Picking up an Object (QC): 5 PT Plan Treatment/Plan Treatment Plan: Continue Plan of Care Treatment Plan: Bed Mobility, Education, Functional Activity Maurice, Functional Strength, Group Therapy, Gait, Safety, Therapeutic Exercise, Transfers Treatment Duration: Nov 26, 2016 Visits Per Week: 10-15 Minutes/Day (M-F): 60-90 Minutes/Day (Sat/[place]): prn Time/GCodes Time In: 950 Time Out: 1013 Total Billed Treatment Time: 23 Total Billed Treatment 1, GT 13', Ex 10' SHANTEL KAUR PT November 02, 2016 11:14
[2016-11-02 18:47] VITALS: BP 112/71
[2016-11-02] MEDS: ACETAMINOPHEN 325 MG TABLET/CAPLET (TYLENOL) PO PRN (21:35)
[2016-11-03 06:11] VITALS: BP 109/72
[2016-11-03] MEDS: ENOXAPARIN 40 MG/0.4 ML (LOVENOX) SYR SC SCH (08:04)
[2016-11-03] MEDS: oxyCODONE 5 MG/5 ML ORAL SOLN (roxiCODONE) 5 ML UDC PO PRN ×3 (08:04→17:52)
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
[2016-11-03 17:59] VITALS: BP 107/69
[2016-11-04 05:43] VITALS: BP 126/80
[2016-11-04] MEDS ORDERED: LACTATED RINGERS 1,000 ML IV PRN (07:31)
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
--- NOTE | 2016-11-04 08:46 | Physical Therapy Daily Note ---
PT Daily Note-Current Subjective Patient in bed pre tx, agrees to PT. Apparently she has to get an ORIF on her left elbow today. She has pain of 7/10 in her left arm and thoracic/cervical spine. Appearance Patient in bed post tx with nurse call, phone, tray, family in the room. Mental Status Patient Orientation: Person, Place, Situation Transfers Functional [place] Measure 0=Not Assessed/NA 4=Minimal Assistance 1=Total Assistance 5=Supervision or Setup 2=Maximal Assistance 6=Modified [place] 3=Moderate Assistance 7=Complete IndependenceIRFPAI Quality Coding Scale 6 Independent with activity with or without an assistive device 5 Patient requires set up or clean up by helper. Patient completes activity by themselves 4 Supervision or touching assist (CGA). [place] provide cues , steadying assist 3 The helper provides less than half the effort to complete the activity 2 The helper provides more than half the effort to complete the activity 1 Dependent. The helper does all the effort to complete an activity 7 Patient refused to complete or attempt activity 9 The patient did not perform the activity before the current illness or injury 88 Not attempted due to Medical conditions or safety concerns Transfers (B, C, W/C) (FIM): 5 Scootin Rollin Supine to/from Sit: 6 Sit to/from Stand: 5 Gait Training Gait (FIM): 5 Distance: 500'x2 Gait Level of Assist: 5 Gait Persons Needed: 1 Gait Assistive Device: FWW Balance much better, no veering to the right side, however, patient does say that she has some blurred vision on the left side. Exercises NuStep Minutes: 20 NuStep Workload: 4 Treatments bed mobility and transfers, ambulation, functional strengthening. Assessment Current Status: Fair Progress improved balance PT Short Term Goals Short Term Goals Time Frame: November 12, 2016 Gait (FIM): 4 Distance (FIM): 3=150 ft Gait Assistive Device: FWW PT Automation And Controls Manager Goals Automation And Controls Manager Goals PT Chcf Goals Time Frame: Nov 26, 2016 Transfers (B,C,W/C) (FIM): 7 Sit to Lying (QC): 6 Lying-Sitting on Side/Bed(QC): 6 Sit to Stand (QC): 6 Rollin Roll Left to Right (QC): 6 Chair/Kri-zz-Gyjho Xfer(QC): 6 Car Transfer (QC): 6 Does the Patient Walk: Yes Gait (FIM): 6 Gait distance (FIM): 3=150 ft Walk 10 feet (QC): 6 Walk 10ft-Uneven Surface(QC): 6 Walk 50ft with 2 Turns (QC): 6 Walk 150 ft (QC): 6 Gait Level of Assist: 6 Gait Assistive Device: FWW Does the Pt use WC or Scooter?: No Stairs (FIM): 6 # of Steps: 12 1 Step (curb) (QC): 6 4 Steps (QC): 6 12 Steps (QC): 6 Stairs Level Of Assist: 6 Picking up an Object (QC): 5 PT Plan Problem List Problem List: Activity Tolerance, Functional Strength, Safety, Balance, Gait, Transfer Treatment/Plan Treatment Plan: Continue Plan of Care Treatment Plan: Bed Mobility, Education, Functional Activity [place], Functional Strength, Group Therapy, Gait, Safety, Therapeutic Exercise, Transfers Treatment Duration: Nov 26, 2016 Visits Per Week: 10-15 Minutes/Day (M-F): 60-90 Minutes/Day (Sat/[place]): prn Safety Risks/Education Patient Education: Gait Training, Transfer Techniques, Correct Positioning, Safety Issues Teaching Recipient: Patient Teaching Methods: Demonstration, Discussion Response to Teaching: Reinforcement Needed Time/GCodes Time In: 800 Time Out: 845 Total Billed Treatment Time: 45 Total Billed Treatment 1 visit EX 20' GT 25' JAQUAN JO PT November 04, 2016 08:46
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
--- NOTE | 2016-11-04 09:37 | Speech Therapy Daily Note ---
Speech Daily Progress Note Subjective The patient was seated upright in bed upon entrance. The patient greeted the clinician appropriately and was agreeable to cognitive therapy on this date. Objective Safety Problem Solving: The patient was provided pictures depicting safety issues in her environment. The patient was asked to identify the safety issue and provide an appropriate solution. The patient demonstrated excellent accuracy with this task, identifying the safety issues with minimal verbal prompting from the clinician. The patient completed today's task with 90% accuracy. Orientation: Initially, the patient stated the month was June and she was in [place], [place]. The patient was able to accurately state the year, date, and day of week. At the close of the session, the patient was able to identify all orientation information accurately. External Memory Strategies: External memory strategies were discussed and reviewed on this date. Per patient, she keeps a calendar in her kitchen that she checks daily, as well as, the note cards with appointment reminders (she places on fridge). Additionally, the patient follows a routine which includes specific time for caring for specific farm animals, as well as, meal times for her children. At this time, the patient does not use a pill box at home as she does not take any medication regularly. The patient was encouraged to purchase a pill box following discharge to aid with any medication needs. Assessment Assessment Current Status: Good Progress Treatment Plan Continue Plan of Care Communication Comprehension: 4 Expression: 4 Social Cognition Social Interaction: 4 Problem Solvin Memory: 3 Speech Short Term Goals Short Term Goals Short Term Goals 1. The patient will display 90% accuracy with simple orientation information with the use of an external aide. 2. The patient will demonstrate 90% accuracy with safety problem solving, independently. 3. The patient will attend to a therapy task for a period of three minutes ( uninterrupted). 4. The patient will display 80% accuracy with structured word-finding tasks with mild clinician verbal cueing. Time Frame-STG: Two Weeks Speech Mcc Goals Contract Associate Manager Goals 1. The patient will demonstrate improved cognitive linguistic skills for increased function and safety with ADL's in the least restrictive setting. Comprehension: 4 Expression: 4 Social Interaction: 6 Problem Solvin Memory: 4 Speech-Plan Treatment Plan Speech Therapy Treatment Plan: Continue Plan of Care Continue skilled speech pathology to target functional problem solving and memory strategies. Treatment Duration: Nov 26, 2016 # of days/week Four to five. Visits Per Week: Four to five. Minutes/Day (M-F): 30 Rehab Potential: Good Safety Risks/Education Teaching Recipient: Patient Teaching Methods: Demonstration, Discussion Response to Teaching: Verbalize Understanding Education Topics Provided: External Memory Strategies Time Speech Therapy Time In: 08:55 Speech Therapy Time Out: 09:25 Total Billed Time: 30 Billed Treatment Time 1VASHTI ELIZABETH ST November 04, 2016 09:37
--- NOTE | 2016-11-04 11:19 | Occupational Ther Daily Note ---
OT Current Status-Daily Note Subjective Pt seen in room, up in bed, agreeable to OT. Pt to have ORIF L elbow later today. No pain specifically mentioned Appearance Alert, cooperative, reported pass over weekend went well. Mental Status/Objective Functional [place] Measure 0=Not Assessed/NA 4=Minimal Assistance 1=Total Assistance 5=Supervision or Setup 2=Maximal Assistance 6=Modified [place] 3=Moderate Assistance 7=Complete [place] ADL-Treatment Pt agreeable to shower. Balance walking to bathroom and during ADLs has improved but she is still a little wobbly with FWW. Functional [place] Measure 0=Not Assessed/NA 4=Minimal Assistance 1=Total Assistance 5=Supervision or Setup 2=Maximal Assistance 6=Modified [place] 3=Moderate Assistance 7=Complete IndependenceIRFPAI Quality Coding Scale 6 Independent with activity with or without an assistive device 5 Patient requires set up or clean up by helper. Patient completes activity by themselves 4 Supervision or touching assist (CGA). [place] provide cues , steadying assist 3 The helper provides less than half the effort to complete the activity 2 The helper provides more than half the effort to complete the activity 1 Dependent. The helper does all the effort to complete an activity 7 Patient refused to complete or attempt activity 9 The patient did not perform the activity before the current illness or injury 88 Not attempted due to Medical conditions or safety concerns Bathing (FIM): 5 (Supervision, SBA when standing. Washed and dried all parts, shower bench, grab bars, hand held shower. Setup to turn water on and off. Used surgical prep soap) Upper Body (FIM): 4 (Needed a little help to get sports bra off over head and arms. Dressed in hospital gown for surgery) Lower Body Dressing (FIM): 5 (SBA to doff clothing and don pants and slipper socks) Toileting (FIM): 5 (SBA to manage clothing and hygiene) Toilet/Commode Transfer (FIM): 5 (SBA, on and off tall toilet. Grab bar, FWW) Cervical collar in place except to take shirt off and to change to dry pads Other Treatment Pt walked to gym with CGA, FWW, a little wobble but no LOB observed. In gym, pt did fine motor coordination activities including finding small beads in red theraputty, manipulating and placing pegs for grooved pegboard test (not timed) - she was able to place and remove pegs with both hands. Also did playing card activities for coordination and for following directions, problem solving, memory, coordination, hand strength. She was able to sort and hold cards and play Tradono game with only occasional cues. Pt walked back to her room, CGA, FWW and got into bed without help. All needs met. Mother in room. Education OT Patient Education: Modified ADL techniques, Progress toward Goal/Update tx plan, Purpose of tx/functional activities, Safety issues Teaching Recipient: Patient Teaching Methods: Demonstration, Discussion Response to Teaching: Verbalize Understanding, Reinforcement Needed OT Short Term Goals Short Term Goals Time Frame: November 12, 2016 Grooming(FIM): 5 Toileting(FIM): 5 Toilet/Commode Transfer(FIM): 5 Additional Short Term Goals: 2-Verbalize Understanding, 3-ImproveStrength/Maurice 1=Demonstrate adherence to instructed precautions during ADL tasks. 2=Patient will verbalize/demonstrate understanding of assistive devices/ modifications for ADL. 3=Patient will improve strength/tolerance for activity to enable patient to perform ADL's. OT Chcf Goals Habilitative Interventionist Goals Time Frame: Nov 26, 2016 Eating (FIM): 6 Eating (QC): 6 Groomin Oral Hygiene (QC): 6 Bathing(FIM): 6 Shower/Bathe Self (QC): 6 Upper Body Dressing(FIM): 6 Upper Body Dressing (QC): 6 Lower Body Dressing(FIM): 6 Lower Body Dressing (QC): 6 On/Off Footwear (QC): 6 Toileting(FIM): 6 Toileting Hygiene (QC): 6 Toilet/Commode Transfer(FIM): 6 Toilet/Commode Transfer (QC): 6 Shower Transfer(FIM): 6 Comprehension(FIM): 4 Expression (FIM): 4 Social Interaction(FIM): 6 Problem Solving(FIM): 4 Memory(FIM): 4 Additional Goals: 2-Verbalize Understanding, 3-ImproveStrength/Maurice 1=Demonstrate adherence to instructed precautions during ADL tasks. 2=Patient will verbalize/demonstrate understanding of assistive devices/ modifications for ADL. 3=Patient will improve strength/tolerance for activity to enable patient to perform ADL's. OT Education/Plan Problem List/Assessment Pt would benefit from skilled OT to increase her independence in basic self care to allow her to safely return to her home to live with family and to decrease caregiver burden. Discharge Recommendations Plan/Recommendations: Continue POC Treatment Plan/Plan of Care Patient would benefit from OT for education, treatment and training to promote independence in ADL's, mobility, safety and/or upper extremity function for ADL' s. Plan of Care: ADL Retraining, Functional Mobility, Group Exercise/Act as Ind ( education, exercise, memory, activity tolerance, socialization, problem solving) , UE Funct Exercise/Act, UE Neuromus Re-Ed/Coord Treatment Duration: Nov 26, 2016 Visits Per Week: 10-11 Minutes/Day (M-F): 75-90 Minutes/Day (Sat/[place]): PRN Agreement: Yes Rehab Potential: Good Time/GCodes Start Time: 09:30 Stop Time: 10:45 Total Time Billed (hr/min): 75 Billed Treatment Time visit, ADL 35 minutes, neuromotor 40 minutes OSBALDO MORTON OT November 04, 2016 11:19
[2016-11-04] MEDS: oxyCODONE 5 MG/5 ML ORAL SOLN (roxiCODONE) 5 ML UDC PO PRN ×2 (11:28→22:58)
--- NOTE | 2016-11-04 13:31 | Physical Therapy Daily Note ---
PT Daily Note-Current Subjective Patient in bed pre tx, agrees to PT, she is still scheduled to have surgery this afternoon, patient states she has pain of 5/10 in right arm due to an IV. Appearance Patient in bed post tx with nurse call, phone, tray, family in the room. Mental Status Patient Orientation: Person, Place, Situation Transfers Functional [place] Measure 0=Not Assessed/NA 4=Minimal Assistance 1=Total Assistance 5=Supervision or Setup 2=Maximal Assistance 6=Modified [place] 3=Moderate Assistance 7=Complete IndependenceIRFPAI Quality Coding Scale 6 Independent with activity with or without an assistive device 5 Patient requires set up or clean up by helper. Patient completes activity by themselves 4 Supervision or touching assist (CGA). [place] provide cues , steadying assist 3 The helper provides less than half the effort to complete the activity 2 The helper provides more than half the effort to complete the activity 1 Dependent. The helper does all the effort to complete an activity 7 Patient refused to complete or attempt activity 9 The patient did not perform the activity before the current illness or injury 88 Not attempted due to Medical conditions or safety concerns Transfers (B, C, W/C) (FIM): 4 Scootin Rollin Supine to/from Sit: 6 Sit to/from Stand: 4 Gait Training Gait (FIM): 4 Distance: 300'x2 Gait Level of Assist: 4 Gait Persons Needed: 1 Gait Assistive Device: None Patient can be unsteady when turning, but no LOB. Needs cues for direction. Stair Training Stair Training: Handrails/: 2 handrails Stairs (FIM): 4 #of Steps: 12 Stairs: Pattern: Step to Level of Assist: 4 CGA, cues for safety and foot placement Exercises LAQ alternating for 5 min with 2# ankle weights. Treatments bed mobility and transfers, ambulation, functional strengthening, stair training Assessment Current Status: Fair Progress improved ambulation PT Short Term Goals Short Term Goals Time Frame: November 12, 2016 Gait (FIM): 4 Distance (FIM): 3=150 ft Gait Assistive Device: FWW PT Community Health Program Representative Goals Community Health Program Representative Goals PT Community Health Program Representative Goals Time Frame: Nov 26, 2016 Transfers (B,C,W/C) (FIM): 7 Sit to Lying (QC): 6 Lying-Sitting on Side/Bed(QC): 6 Sit to Stand (QC): 6 Rollin Roll Left to Right (QC): 6 Chair/Ijq-kx-Rulye Xfer(QC): 6 Car Transfer (QC): 6 Does the Patient Walk: Yes Gait (FIM): 6 Gait distance (FIM): 3=150 ft Walk 10 feet (QC): 6 Walk 10ft-Uneven Surface(QC): 6 Walk 50ft with 2 Turns (QC): 6 Walk 150 ft (QC): 6 Gait Level of Assist: 6 Gait Assistive Device: FWW Does the Pt use WC or Scooter?: No Stairs (FIM): 6 # of Steps: 12 1 Step (curb) (QC): 6 4 Steps (QC): 6 12 Steps (QC): 6 Stairs Level Of Assist: 6 Picking up an Object (QC): 5 PT Plan Problem List Problem List: Activity Tolerance, Functional Strength, Safety, Balance, Gait, Transfer Treatment/Plan Treatment Plan: Continue Plan of Care Treatment Plan: Bed Mobility, Education, Functional Activity [place], Functional Strength, Group Therapy, Gait, Safety, Therapeutic Exercise, Transfers Treatment Duration: Nov 26, 2016 Visits Per Week: 10-15 Minutes/Day (M-F): 60-90 Minutes/Day (Sat/[place]): prn Safety Risks/Education Patient Education: Gait Training, Transfer Techniques, Steps, Correct Positioning, Safety Issues Teaching Recipient: Patient Teaching Methods: Demonstration, Discussion Response to Teaching: Reinforcement Needed Time/GCodes Time In: 1300 Time Out: 1330 Total Billed Treatment Time: 30 Total Billed Treatment 1 visit GT 30' JAQUAN JO PT November 04, 2016 13:31
[2016-11-04] MEDS ORDERED: morphine INJ 10 MG/ML 1ML (SYR OR VIAL) ONE (14:19)
[2016-11-04] MEDS ORDERED: fentaNYL INJECTION 250 MCG/5 ML AMP ONE (14:27)
[2016-11-04] MEDS ORDERED: MIDAZOLAM 2 MG/2 ML (VERSED) VIAL ONE (14:27)
[2016-11-04] MEDS ORDERED: proPOfol 200 MG/20 ML (DIPRIVAN) VIAL IV ONE (14:27)
[2016-11-04] MEDS ORDERED: LIDOCAINE PF 2% 10 ML (XYLOCAINE) AMP ONE (14:27)
[2016-11-04] MEDS ORDERED: ONDANSETRON 4 MG/2 ML (SDV) Z0FRAN ONE (14:29)
[2016-11-04] MEDS ORDERED: LACTATED RINGERS 1,000 ML IV ONE (14:29)
[2016-11-04] MEDS ORDERED: SEVOFLURANE (ULTANE) 15 ML INHAL SOLN ONE ×3 (14:29→15:43)
[2016-11-04] MEDS ORDERED: DEXAMETHASONE PF 10 MG/ML (DECADRON) VIAL ONE (14:29)
[2016-11-04] MEDS ORDERED: ceFAZolin 1,000 MG (ANCEF) VIAL ONE (15:22)
[2016-11-04] MEDS ORDERED: ONDANSETRON 4 MG/2 ML (SDV) Z0FRAN IVP PRN (15:45)
[2016-11-04] MEDS ORDERED: ceFAZolin INJECTION 1,000 MG in NS (IVPB) 50 ML IV ONE (15:45)
--- NOTE | 2016-11-04 16:05 | Progress Note-Post Operative ---
Post-Operative Progess Note Surgeon (s)/Piercing Specialist (s) Surgeon TYRESE MERA MD Piercing Specialist: LAKEISHA Hubbard Pre-Operative Diagnosis Left Closed Olecranon Fracture Post-Operative Diagnosis Same Procedure & Operative Findings Date of Procedure 11/04/16 Procedure Performed/Findings ORIF Left Olecranon Anesthesia Type Gen LMA Estimated Blood Loss Estimated blood loss (mL): Min Specimens/Packing Specimens Removed None TYRESE MERA MD November 04, 2016 4:05 pm
[2016-11-04] MEDS: morphine INJ 10 MG/ML 1ML (SYR OR VIAL) IVP PRN ×2 (16:15→16:20)
--- NOTE | 2016-11-04 16:21 | Diagnostic Imaging Report ---
INDICATION: Proximal ulnar fracture. FINDINGS: Two views were obtained in surgery with portable intensifier showing open reduction and internal fixation of the proximal ulnar fracture with fracture fragments in good alignment. 10 seconds of fluoroscopy time was used in surgery. IMPRESSION: Anatomic alignment of proximal ulnar fracture with pins and wires in place. Dictated by: Dictated on workstation # [id number]
[2016-11-04] MEDS: MEPERIDINE (DEMEROL) INJ 50 MG/ML IVP PRN ×2 (16:35→16:50)
[2016-11-04 17:25] VITALS: BP 115/79
[2016-11-04] MEDS ORDERED: MEPERIDINE (DEMEROL) INJ 50 MG/ML ONE (19:17)
[2016-11-05 05:43] VITALS: BP 117/75
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
[2016-11-05] MEDS: oxyCODONE 5 MG/5 ML ORAL SOLN (roxiCODONE) 5 ML UDC PO PRN ×2 (06:52→20:14)
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
--- NOTE | 2016-11-05 09:45 | Physical Therapy Daily Note ---
PT Daily Note-Current Subjective Patient in bed pre tx, agrees to PT, she had an ORIF on her left olecranon yesterday and she has a soft cast and sling, she states she has pain of about 7/ 10 in her left arm. Appearance Patient in bed post tx with nurse call, phone, tray, family in the room. Mental Status Patient Orientation: Person, Place, Situation Transfers Functional [place] Measure 0=Not Assessed/NA 4=Minimal Assistance 1=Total Assistance 5=Supervision or Setup 2=Maximal Assistance 6=Modified [place] 3=Moderate Assistance 7=Complete IndependenceIRFPAI Quality Coding Scale 6 Independent with activity with or without an assistive device 5 Patient requires set up or clean up by helper. Patient completes activity by themselves 4 Supervision or touching assist (CGA). [place] provide cues , steadying assist 3 The helper provides less than half the effort to complete the activity 2 The helper provides more than half the effort to complete the activity 1 Dependent. The helper does all the effort to complete an activity 7 Patient refused to complete or attempt activity 9 The patient did not perform the activity before the current illness or injury 88 Not attempted due to Medical conditions or safety concerns Transfers (B, C, W/C) (FIM): 6 Scootin Rollin Supine to/from Sit: 6 Sit to/from Stand: 6 Gait Training Gait (FIM): 4 Distance: 600'x2 Gait Level of Assist: 4 Gait Persons Needed: 1 Gait Assistive Device: None Patient is only CGA at this time because she doesn't pay attention during ambulation, if she did she would be SBA. Patient talks constantly and is so focused on that she doesn't pay attention to anything else. She needs cues for direction. Exercises NuStep Minutes: 20 NuStep Workload: 5 Treatments ambulation bed mobility and transfers, functional strengthening Assessment Current Status: Fair Progress improving balance and endurance PT Short Term Goals Short Term Goals Time Frame: November 12, 2016 Gait (FIM): 4 Distance (FIM): 3=150 ft Gait Assistive Device: FWW PT Machine Inker Goals Machine Inker Goals PT Machine Inker Goals Time Frame: Nov 26, 2016 Transfers (B,C,W/C) (FIM): 7 Sit to Lying (QC): 6 Lying-Sitting on Side/Bed(QC): 6 Sit to Stand (QC): 6 Rollin Roll Left to Right (QC): 6 Chair/Mqz-wf-Ndgzj Xfer(QC): 6 Car Transfer (QC): 6 Does the Patient Walk: Yes Gait (FIM): 6 Gait distance (FIM): 3=150 ft Walk 10 feet (QC): 6 Walk 10ft-Uneven Surface(QC): 6 Walk 50ft with 2 Turns (QC): 6 Walk 150 ft (QC): 6 Gait Level of Assist: 6 Gait Assistive Device: FWW Does the Pt use WC or Scooter?: No Stairs (FIM): 6 # of Steps: 12 1 Step (curb) (QC): 6 4 Steps (QC): 6 12 Steps (QC): 6 Stairs Level Of Assist: 6 Picking up an Object (QC): 5 PT Plan Problem List Problem List: Activity Tolerance, Functional Strength, Safety, Balance, Gait, Transfer Treatment/Plan Treatment Plan: Continue Plan of Care Treatment Plan: Bed Mobility, Education, Functional Activity [place], Functional Strength, Group Therapy, Gait, Safety, Therapeutic Exercise, Transfers Treatment Duration: Nov 26, 2016 Visits Per Week: 10-15 Minutes/Day (M-F): 60-90 Minutes/Day (Sat/[place]): prn Safety Risks/Education Patient Education: Gait Training, Transfer Techniques, Correct Positioning, Safety Issues Teaching Recipient: Patient Teaching Methods: Demonstration, Discussion Response to Teaching: Reinforcement Needed Time/GCodes Time In: 900 Time Out: 945 Total Billed Treatment Time: 45 Total Billed Treatment 1 visit EX 20' GT 25' JAQUAN JO PT November 05, 2016 09:44
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
--- NOTE | 2016-11-05 09:55 | Speech Therapy Daily Note ---
Speech Daily Progress Note Subjective The patient was seated upright in bed upon entrance. The patient greeted the clinician appropriately and was agreeable to participation in the cognitive treatment session. Per patient's mother, the patient appears "more like Deepa" since recovering from her recent anesthesia. The patient's mother reports the patient's memory has improved and she is "talking like crazy." Objective Internal Memory Strategies: Internal memory strategies were discussed, demonstrated, and reviewed with the patient on this date. The strategies included repetition, visual imagery, and association. Per patient, she rarely uses internal strategies and prefers to "write everything down." The patient was able to recall two external memory strategies from the day prior (notes, appointment cards). Recall of Three to Four Elements: The patient was read short stories aloud and asked to respond to questions regarding the information. The patient demonstrated improved accuracy with this task when the question asked was provided and the story was re-read a second time. During this presentation, the patient demonstrated 90% accuracy with mild clinician verbal cueing. Orientation: The patient was oriented to month, day of week, date, and year ( independently). Assessment Assessment Current Status: Good Progress Treatment Plan Continue Plan of Care Communication Comprehension: 4 Expression: 4 Social Cognition Social Interaction: 5 Problem Solvin Memory: 3 Speech Short Term Goals Short Term Goals Short Term Goals 1. The patient will display 90% accuracy with simple orientation information with the use of an external aide. 2. The patient will demonstrate 90% accuracy with safety problem solving, independently. 3. The patient will attend to a therapy task for a period of three minutes ( uninterrupted). 4. The patient will display 80% accuracy with structured word-finding tasks with mild clinician verbal cueing. Time Frame-STG: Two Weeks Speech Web Analytics Developer Goals Web Analytics Developer Goals 1. The patient will demonstrate improved cognitive linguistic skills for increased function and safety with ADL's in the least restrictive setting. Comprehension: 4 Expression: 4 Social Interaction: 6 Problem Solvin Memory: 4 Speech-Plan Treatment Plan Speech Therapy Treatment Plan: Continue Plan of Care Continue skilled speech pathology to target functional memory strategies and problem solving. Treatment Duration: Nov 26, 2016 # of days/week Four to five. Visits Per Week: Four to five. Minutes/Day (M-F): 30 Rehab Potential: Good Safety Risks/Education Teaching Recipient: Patient Teaching Methods: Demonstration, Handout, Discussion Response to Teaching: Return Demonstration Education Topics Provided: Internal Memory Strategies Time Speech Therapy Time In: 08:30 Speech Therapy Time Out: 09:00 Total Billed Time: 30 Billed Treatment Time 1, HERMINIA HORN November 05, 2016 09:55
--- NOTE | 2016-11-05 11:36 | Occupational Ther Daily Note ---
OT Current Status-Daily Note Subjective Pt. asks if it is okay if her mother assists with her shower. Pt. and mother both asked by this OT if mother will be with her at home, assisting her. Both comply "yes." OT observes mother assist pt. with shower. Appearance Pt. in bed. Reports no pain. Very talkative. Mental Status/Objective Patient Orientation: Person, Place Functional [place] Measure 0=Not Assessed/NA 4=Minimal Assistance 1=Total Assistance 5=Supervision or Setup 2=Maximal Assistance 6=Modified [place] 3=Moderate Assistance 7=Complete [place] Attachments: IV ADL-Treatment Functional [place] Measure 0=Not Assessed/NA 4=Minimal Assistance 1=Total Assistance 5=Supervision or Setup 2=Maximal Assistance 6=Modified [place] 3=Moderate Assistance 7=Complete IndependenceIRFPAI Quality Coding Scale 6 Independent with activity with or without an assistive device 5 Patient requires set up or clean up by helper. Patient completes activity by themselves 4 Supervision or touching assist (CGA). [place] provide cues , steadying assist 3 The helper provides less than half the effort to complete the activity 2 The helper provides more than half the effort to complete the activity 1 Dependent. The helper does all the effort to complete an activity 7 Patient refused to complete or attempt activity 9 The patient did not perform the activity before the current illness or injury 88 Not attempted due to Medical conditions or safety concerns Grooming (FIM): 5 (Pt. able to brush her own hair.) Bathing (FIM): 4 (Mother provides min assistance in shower.) Shower/Bathe Self (QC): 4 Upper Body (FIM): 3 (Mother provides assistance to doff/don shirt/bra.) Upper Body Dressing (QC): 3 Lower Body Dressing (FIM): 3 (Pt. does attempt to don her own socks, but had mother do it when she gets them caught on her toe. Mother assists with pants.) Lower Body Dressing (QC): 3 On/Off Footwear (QC): 3 Toileting (FIM): 5 (Pt. is able to toilet self in bathroom with SBA/ supervision.) Toileting Hygiene (QC): 5 Transfers (B, C, W/C) (FIM): 5 (SBA during ambulation.) Toilet/Commode Transfer (FIM): 5 Toilet Transfer (QC): 5 Shower Transfer(FIM): 5 Other Treatment Mother assists pt. with shower/ADLs, and OT observes due to mother being person to assist at home. Pt's neck brace was removed briefly to change into dry padding. Mother is educated on this and observes OT. Mother is also educated on keeping left UE dry with trash bag and tape. Verbalizes understanding. Pt. is encouraged to do more for self, but both state that her mother will help her a lot when she gets home. Pt. verbalizes that she has some numbness in her left hand, but does not verbalize that it is weaker. However, this is noted later in gym during small bead stringing task. Requires increased time with this task. Mother and pt. are educated regarding discharge goals and plans, and need for continued speech therapy. Mother states multiple times that "this is the old Deepa." Mother does state that she is concerned regarding pt's " blurry vision" at times. Mother is educated regarding process of brain injury and visual issues. Educate her that pt. will have follow up with neurologist, and that visual issues, if she is still experiencing some blurry vision, will continued to be addressed at that time. Mother begins to explain her own visual issues, cataracts, visual acuity, etc.....All needs met in room and neither pt. nor mother have any other concerns. Education OT Patient Education: Correct positioning, Instructions don/doff splint/brace, Modified ADL techniques, Progress toward Goal/Update tx plan, Purpose of tx/ functional activities, Reviewed precautions, Rehab process, Transfer techniques Teaching Recipient: Patient Teaching Methods: Demonstration, Discussion Response to Teaching: Verbalize Understanding, Return Demonstration OT Short Term Goals Short Term Goals Time Frame: November 12, 2016 Grooming(FIM): 5 Toileting(FIM): 5 Toilet/Commode Transfer(FIM): 5 Additional Short Term Goals: 2-Verbalize Understanding, 3-ImproveStrength/Maurice 1=Demonstrate adherence to instructed precautions during ADL tasks. 2=Patient will verbalize/demonstrate understanding of assistive devices/ modifications for ADL. 3=Patient will improve strength/tolerance for activity to enable patient to perform ADL's. OT Mcc Goals Mcc Goals Time Frame: Nov 26, 2016 Eating (FIM): 6 Eating (QC): 6 Groomin Oral Hygiene (QC): 6 Bathing(FIM): 6 Shower/Bathe Self (QC): 6 Upper Body Dressing(FIM): 6 Upper Body Dressing (QC): 6 Lower Body Dressing(FIM): 6 Lower Body Dressing (QC): 6 On/Off Footwear (QC): 6 Toileting(FIM): 6 Toileting Hygiene (QC): 6 Toilet/Commode Transfer(FIM): 6 Toilet/Commode Transfer (QC): 6 Shower Transfer(FIM): 6 Comprehension(FIM): 4 Expression (FIM): 4 Social Interaction(FIM): 6 Problem Solving(FIM): 4 Memory(FIM): 4 Additional Goals: 2-Verbalize Understanding, 3-ImproveStrength/Maurice 1=Demonstrate adherence to instructed precautions during ADL tasks. 2=Patient will verbalize/demonstrate understanding of assistive devices/ modifications for ADL. 3=Patient will improve strength/tolerance for activity to enable patient to perform ADL's. OT Education/Plan Problem List/Assessment Assessment: Decreased Activ Tolerance, Decreased Safety Aware, Decreased UE Strength, Impaired Cognition, Impaired Coordination, Impaired I ADL's, Impaired Self-Care Skills, Restricted Funct UE ROM Pt would benefit from skilled OT to increase her independence in basic self care to allow her to safely return to her home to live with family and to decrease caregiver burden. Discharge Recommendations Plan/Recommendations: Continue POC Therapy D/C Recommendations: Home w/ Family Support, Occupational Therapy Home Care Treatment Plan/Plan of Care Treatment,Training & Education: Yes Patient would benefit from OT for education, treatment and training to promote independence in ADL's, mobility, safety and/or upper extremity function for ADL' s. Plan of Care: ADL Retraining, Functional Mobility, Group Exercise/Act as Ind ( education, exercise, memory, activity tolerance, socialization, problem solving) , UE Funct Exercise/Act, UE Neuromus Re-Ed/Coord Treatment Duration: Nov 26, 2016 Visits Per Week: 10-11 Minutes/Day (M-F): 75-90 Minutes/Day (Sat/[place]): PRN Agreement: Yes Rehab Potential: Good Time/GCodes Start Time: 09:55 Stop Time: 11:10 Total Time Billed (hr/min): 75 Billed Treatment Time 1, ADL x 60minutes, Ex x 15minutes SANGEETHA JOHNSON OT November 05, 2016 11:36
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
[2016-11-05] MEDS: ACETAMINOPHEN 325 MG TABLET/CAPLET (TYLENOL) PO PRN (14:19)
[2016-11-05 18:12] VITALS: BP 109/72
[2016-11-06 06:00] VITALS: BP 133/83
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
[2016-11-06 09:26] VITALS: BP 109/69
--- NOTE | 2016-11-06 09:32 | Physical Therapy Daily Note ---
PT Daily Note-Current Subjective Patient in bed pre tx, agrees to PT, has 7/10 pain in left arm. Appearance Patient in bed post tx with nurse call, phone, tray, family in the room. Mental Status Patient Orientation: Person, Place, Situation cervical collar Transfers Functional [place] Measure 0=Not Assessed/NA 4=Minimal Assistance 1=Total Assistance 5=Supervision or Setup 2=Maximal Assistance 6=Modified [place] 3=Moderate Assistance 7=Complete IndependenceIRFPAI Quality Coding Scale 6 Independent with activity with or without an assistive device 5 Patient requires set up or clean up by helper. Patient completes activity by themselves 4 Supervision or touching assist (CGA). [place] provide cues , steadying assist 3 The helper provides less than half the effort to complete the activity 2 The helper provides more than half the effort to complete the activity 1 Dependent. The helper does all the effort to complete an activity 7 Patient refused to complete or attempt activity 9 The patient did not perform the activity before the current illness or injury 88 Not attempted due to Medical conditions or safety concerns Transfers (B, C, W/C) (FIM): 5 Scootin Rollin Supine to/from Sit: 6 Sit to/from Stand: 5 Gait Training Gait (FIM): 5 Distance: 500'x2 Gait Level of Assist: 5 Gait Persons Needed: 1 Gait Assistive Device: None occasionally unsteady with turning but no LOB at this time Stair Training Stair Training: Handrails/: 2 handrails Stairs (FIM): 5 #of Steps: 12 Stairs: Pattern: Step to Level of Assist: 5 close supervision, unsteady when turning Balance Picking up an Object (QC): 4 Neuromuscular cone activity, picking up 10 cones one at a time at strategic positions requiring her to reach or bend over etc, unsteady with turning, occasionally will stub her right toes Treatments transfers, ambulation, balance training, functional strengthening Assessment Current Status: Fair Progress improving balance, stairs PT Short Term Goals Short Term Goals Time Frame: November 12, 2016 Gait (FIM): 4 Distance (FIM): 3=150 ft Gait Assistive Device: FWW PT Director Of Retention Goals Senior Care Goals PT Senior Care Goals Time Frame: Nov 26, 2016 Transfers (B,C,W/C) (FIM): 7 Sit to Lying (QC): 6 Lying-Sitting on Side/Bed(QC): 6 Sit to Stand (QC): 6 Rollin Roll Left to Right (QC): 6 Chair/Ieh-fl-Utrbc Xfer(QC): 6 Car Transfer (QC): 6 Does the Patient Walk: Yes Gait (FIM): 6 Gait distance (FIM): 3=150 ft Walk 10 feet (QC): 6 Walk 10ft-Uneven Surface(QC): 6 Walk 50ft with 2 Turns (QC): 6 Walk 150 ft (QC): 6 Gait Level of Assist: 6 Gait Assistive Device: FWW Does the Pt use WC or Scooter?: No Stairs (FIM): 6 # of Steps: 12 1 Step (curb) (QC): 6 4 Steps (QC): 6 12 Steps (QC): 6 Stairs Level Of Assist: 6 Picking up an Object (QC): 5 PT Plan Problem List Problem List: Activity Tolerance, Functional Strength, Safety, Balance, Gait, Transfer Treatment/Plan Treatment Plan: Continue Plan of Care Treatment Plan: Bed Mobility, Education, Functional Activity [place], Functional Strength, Group Therapy, Gait, Safety, Therapeutic Exercise, Transfers Treatment Duration: Nov 26, 2016 Visits Per Week: 10-15 Minutes/Day (M-F): 60-90 Minutes/Day (Sat/[place]): prn Safety Risks/Education Patient Education: Gait Training, Transfer Techniques, Steps, Correct Positioning, Safety Issues Teaching Recipient: Patient Teaching Methods: Demonstration, Discussion Response to Teaching: Reinforcement Needed Time/GCodes Time In: 845 Time Out: 930 Total Billed Treatment Time: 45 Total Billed Treatment 1 visit NM 10' EX 20' GT 15' JAQUAN JO PT November 06, 2016 09:32
[2016-11-06] MEDS: ACETAMINOPHEN 325 MG TABLET/CAPLET (TYLENOL) PO PRN ×2 (09:36→19:42)
--- NOTE | 2016-11-06 09:43 | Speech Therapy Daily Note ---
Speech Daily Progress Note Subjective The patient was sleeping upon entrance. The patient was roused with gentle verbal prompts. The patient greeted the clinician appropriately and was agreeable to cognitive therapy on this date. To note: The patient requests to be discharged no later than this Friday, 2016. The clinician agreed to share this request with the patient's care team. Objective Orientation: The patient independently recalled the month, date, year, and day of week at the beginning of the session and before the close. Short-Term Memory/Recall: The patient was read short paragraphs aloud by the clinician. The patient was asked questions regarding the paragraph immediately following. The patient demonstrated 70% accuracy with this task on this date with mild clinician verbal cueing (repetition of paragraph x1). The patient is demonstrating consistent improvement with orientation skills and functional memory. Assessment Assessment Current Status: Good Progress Treatment Plan Continue Plan of Care Communication Comprehension: 4 Expression: 4 Social Cognition Social Interaction: 4 Problem Solvin Memory: 3 Speech Short Term Goals Short Term Goals Short Term Goals 1. The patient will display 90% accuracy with simple orientation information with the use of an external aide. 2. The patient will demonstrate 90% accuracy with safety problem solving, independently. 3. The patient will attend to a therapy task for a period of three minutes ( uninterrupted). 4. The patient will display 80% accuracy with structured word-finding tasks with mild clinician verbal cueing. Time Frame-STG: Two Weeks Speech Janitorial Services Supervisor Goals Chcf Goals 1. The patient will demonstrate improved cognitive linguistic skills for increased function and safety with ADL's in the least restrictive setting. Comprehension: 4 Expression: 4 Social Interaction: 6 Problem Solvin Memory: 4 Speech-Plan Treatment Plan Speech Therapy Treatment Plan: Continue Plan of Care Continue skilled speech pathology to target functional problem solving and memory strategies. Treatment Duration: Nov 26, 2016 # of days/week Four to Five. Visits Per Week: Four to five. Minutes/Day (M-F): 30 Rehab Potential: Good Safety Risks/Education Teaching Recipient: Patient, Family Teaching Methods: Discussion Response to Teaching: Verbalize Understanding, Return Demonstration Education Topics Provided: Orientation Strategies, Memory Strategies Time Speech Therapy Time In: 08:15 Speech Therapy Time Out: 08:45 Total Billed Time: 30 Billed Treatment Time 1VASHTI ELIZABETH ST November 06, 2016 09:43
--- NOTE | 2016-11-06 11:57 | Occupational Ther Daily Note ---
OT Current Status-Daily Note Subjective Pt. states, "I'm doing fine." Appearance Pt. and mother given choice of completing ADLs with OT, or with mother at later time, as she has demonstrated this ability to do so. Pt. and mother choose to do on their own. Nursing notified. Mental Status/Objective Patient Orientation: Person, Unable to Assess Functional [place] Measure 0=Not Assessed/NA 4=Minimal Assistance 1=Total Assistance 5=Supervision or Setup 2=Maximal Assistance 6=Modified [place] 3=Moderate Assistance 7=Complete [place] ADL-Treatment Functional [place] Measure 0=Not Assessed/NA 4=Minimal Assistance 1=Total Assistance 5=Supervision or Setup 2=Maximal Assistance 6=Modified [place] 3=Moderate Assistance 7=Complete IndependenceIRFPAI Quality Coding Scale 6 Independent with activity with or without an assistive device 5 Patient requires set up or clean up by helper. Patient completes activity by themselves 4 Supervision or touching assist (CGA). [place] provide cues , steadying assist 3 The helper provides less than half the effort to complete the activity 2 The helper provides more than half the effort to complete the activity 1 Dependent. The helper does all the effort to complete an activity 7 Patient refused to complete or attempt activity 9 The patient did not perform the activity before the current illness or injury 88 Not attempted due to Medical conditions or safety concerns Transfers (B, C, W/C) (FIM): 5 Other Treatment Pt. ambulated without walker and SBA to therapy gym. Required cues on where to go. Completed series of fine motor coordination tasks using right hand, and then left fingers. Pt. able to do tasks, but does demonstrate some fatigue in hands. Wore 1 lb. wrist weight on right UE to improve overall strength. Pt. demonstrated ability to doff/don left sling for comfort. Completed series of cognitive tasks such as categorization, grouping, problem solving. Pt. did relatively well with categorization and finding things in common. Had more difficulty when more information was given to her at once. Pt. does repeat self , and it is noted at times that she will tell the same story multiple times. Has no awareness that she has already said these things. Ambulated back to room with all needs met. Education OT Patient Education: Instructions don/doff splint/brace, Instructions to caregiver, Progress toward Goal/Update tx plan, Purpose of tx/functional activities, Reviewed precautions, Rehab process, Transfer techniques Teaching Recipient: Patient, Parent Teaching Methods: Demonstration, Discussion Response to Teaching: Verbalize Understanding, Return Demonstration OT Short Term Goals Short Term Goals Time Frame: November 12, 2016 Grooming(FIM): 5 Toileting(FIM): 5 Toilet/Commode Transfer(FIM): 5 Additional Short Term Goals: 2-Verbalize Understanding, 3-ImproveStrength/Maurice 1=Demonstrate adherence to instructed precautions during ADL tasks. 2=Patient will verbalize/demonstrate understanding of assistive devices/ modifications for ADL. 3=Patient will improve strength/tolerance for activity to enable patient to perform ADL's. OT Residential Goals Residential Goals Time Frame: Nov 26, 2016 Eating (FIM): 6 Eating (QC): 6 Groomin Oral Hygiene (QC): 6 Bathing(FIM): 6 Shower/Bathe Self (QC): 6 Upper Body Dressing(FIM): 6 Upper Body Dressing (QC): 6 Lower Body Dressing(FIM): 6 Lower Body Dressing (QC): 6 On/Off Footwear (QC): 6 Toileting(FIM): 6 Toileting Hygiene (QC): 6 Toilet/Commode Transfer(FIM): 6 Toilet/Commode Transfer (QC): 6 Shower Transfer(FIM): 6 Comprehension(FIM): 4 Expression (FIM): 4 Social Interaction(FIM): 6 Problem Solving(FIM): 4 Memory(FIM): 4 Additional Goals: 2-Verbalize Understanding, 3-ImproveStrength/Maurice 1=Demonstrate adherence to instructed precautions during ADL tasks. 2=Patient will verbalize/demonstrate understanding of assistive devices/ modifications for ADL. 3=Patient will improve strength/tolerance for activity to enable patient to perform ADL's. OT Education/Plan Problem List/Assessment Assessment: Impaired Cognition, Impaired Coordination, Impaired I ADL's, Impaired Self-Care Skills Pt would benefit from skilled OT to increase her independence in basic self care to allow her to safely return to her home to live with family and to decrease caregiver burden. Discharge Recommendations Plan/Recommendations: Continue POC Therapy D/C Recommendations: Home w/ Family Support, Speech Therapy Outpatient Target Placement Home with mother support. Treatment Plan/Plan of Care Treatment,Training & Education: Yes Patient would benefit from OT for education, treatment and training to promote independence in ADL's, mobility, safety and/or upper extremity function for ADL' s. Plan of Care: ADL Retraining, Functional Mobility, Group Exercise/Act as Ind ( education, exercise, memory, activity tolerance, socialization, problem solving) , UE Funct Exercise/Act, UE Neuromus Re-Ed/Coord Treatment Duration: Nov 26, 2016 Visits Per Week: 10-11 Minutes/Day (M-F): 75-90 Minutes/Day (Sat/[place]): PRN Agreement: Yes Rehab Potential: Good Time/GCodes Start Time: 10:05 Stop Time: 11:20 Total Time Billed (hr/min): 75 Billed Treatment Time 1, FA x 5 SANGEETHA JOHNSON OT November 06, 2016 11:57
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
[2016-11-06 17:51] VITALS: BP 110/64
[2016-11-07 05:00] VITALS: BP 120/71
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
[2016-11-07] MEDS: ACETAMINOPHEN 325 MG TABLET/CAPLET (TYLENOL) PO PRN ×2 (11:28→20:47)
--- NOTE | 2016-11-07 11:46 | Physical Therapy Daily Note ---
PT Daily Note-Current Subjective Pt laying with head upright in bed upon arrival. Pt reports feeling ready to discharge tomorrow. Pt agrees to PT. Pain Numeric Pain Scale: 7 Location Body Site: Elbow Pain Description: Ache Mental Status Patient Orientation: Person, Place, Time, Situation Attachments: Other-See Comments (Neck Collar) Transfers Functional [place] Measure 0=Not Assessed/NA 4=Minimal Assistance 1=Total Assistance 5=Supervision or Setup 2=Maximal Assistance 6=Modified [place] 3=Moderate Assistance 7=Complete IndependenceIRFPAI Quality Coding Scale 6 Independent with activity with or without an assistive device 5 Patient requires set up or clean up by helper. Patient completes activity by themselves 4 Supervision or touching assist (CGA). [place] provide cues , steadying assist 3 The helper provides less than half the effort to complete the activity 2 The helper provides more than half the effort to complete the activity 1 Dependent. The helper does all the effort to complete an activity 7 Patient refused to complete or attempt activity 9 The patient did not perform the activity before the current illness or injury 88 Not attempted due to Medical conditions or safety concerns Scootin Sit to/from Stand: 5 Sit to Lying (QC): 6 Sit to Stand (QC): 5 Weight Bearing Weight Bearing Restriction: Full Weight Bearing Location Restriction: LE Bilateral Gait Training Does the Patient Walk?: Yes Distance (FIM): 3=150 ft Distance: 300' Walk 10 feet (QC): 5 Walk 50 ft with 2 Turns(QC): 5 Walk 150 ft (QC): 5 Gait Level of Assist: 5 Gait Persons Needed: 1 Gait Assistive Device: None Pt walks with safety and only slight sway when she walks. Pt's jay is normal. Wheelchair Training Does the Pt Use a Wheelchair?: No Stair Training Stair Training: Handrails/: No handrail #of Steps: 16 1 Step (curb) (QC): 5 4 Steps (QC): 5 12 Steps (QC): 5 Stairs: Pattern: Step to Level of Assist: 5 Exercises Standing: Hip Abduction, Heel/toe raises, Mini squats, Weight shifts Standing Reps: 15 NuStep Minutes: 15 NuStep Workload: 5 Treatments Pt transfers at [facility] from Supine to EOB to Standing. Pt ambulates w/o AD at [facility]. Pt uses NuStep for 15m at Workload 5 then completes Standing Ex at // bars. Pt then completes 4 sets of 4 stairs before returning to room to rest at EOB. Pt's mother discussed with pt & PT a few questions she had regarding discharge tomorrow as well as the progress pt has made during Therapy. Pt is sitting at EOB visiting with mother at end of tx with all needs met. Assessment Current Status: Good Progress Pt has made improves with strength, activity tolerance and balance during Therapy as well as ST Memory per family. PT Short Term Goals Short Term Goals Time Frame: November 12, 2016 Gait (FIM): 4 Distance (FIM): 3=150 ft Gait Assistive Device: FWW PT Road Supervisor Goals Longterm Goals PT Longterm Goals Time Frame: Nov 26, 2016 Transfers (B,C,W/C) (FIM): 7 Sit to Lying (QC): 6 Lying-Sitting on Side/Bed(QC): 6 Sit to Stand (QC): 6 Rollin Roll Left to Right (QC): 6 Chair/Cut-pu-Jrxtg Xfer(QC): 6 Car Transfer (QC): 6 Does the Patient Walk: Yes Gait (FIM): 6 Gait distance (FIM): 3=150 ft Walk 10 feet (QC): 6 Walk 10ft-Uneven Surface(QC): 6 Walk 50ft with 2 Turns (QC): 6 Walk 150 ft (QC): 6 Gait Level of Assist: 6 Gait Assistive Device: FWW Does the Pt use WC or Scooter?: No Stairs (FIM): 6 # of Steps: 12 1 Step (curb) (QC): 6 4 Steps (QC): 6 12 Steps (QC): 6 Stairs Level Of Assist: 6 Picking up an Object (QC): 5 PT Plan Problem List Problem List: Safety, Balance, Gait Treatment/Plan Treatment Plan: Continue Plan of Care Treatment Plan: Bed Mobility, Education, Functional Activity [place], Functional Strength, Group Therapy, Gait, Safety, Therapeutic Exercise, Transfers Treatment Duration: Nov 26, 2016 Visits Per Week: 10-15 Minutes/Day (M-F): 60-90 Minutes/Day (Sat/[place]): prn Safety Risks/Education Patient Education: Gait Training, Transfer Techniques, Steps, Correct Positioning, Safety Issues Teaching Recipient: Patient, Family Teaching Methods: Discussion Response to Teaching: Verbalize Understanding Time/GCodes Time In: 915 Time Out: 1000 Total Billed Treatment Time: 45 Total Billed Treatment visit, EX (20m), GT (15m) & FA (10m) BRIAN TORRES ORDER PICKER/ASSEMBLER November 07, 2016 11:46
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
--- NOTE | 2016-11-07 15:00 | Occupational Ther Daily Note ---
OT Current Status-Daily Note Subjective Pt seen in room, up in bed, agreeable to OT. No pain mentioned. Appearance Alert, cooperative Mental Status/Objective Functional [place] Measure 0=Not Assessed/NA 4=Minimal Assistance 1=Total Assistance 5=Supervision or Setup 2=Maximal Assistance 6=Modified [place] 3=Moderate Assistance 7=Complete [place] ADL-Treatment Functional [place] Measure 0=Not Assessed/NA 4=Minimal Assistance 1=Total Assistance 5=Supervision or Setup 2=Maximal Assistance 6=Modified [place] 3=Moderate Assistance 7=Complete IndependenceIRFPAI Quality Coding Scale 6 Independent with activity with or without an assistive device 5 Patient requires set up or clean up by helper. Patient completes activity by themselves 4 Supervision or touching assist (CGA). [place] provide cues , steadying assist 3 The helper provides less than half the effort to complete the activity 2 The helper provides more than half the effort to complete the activity 1 Dependent. The helper does all the effort to complete an activity 7 Patient refused to complete or attempt activity 9 The patient did not perform the activity before the current illness or injury 88 Not attempted due to Medical conditions or safety concerns Other Treatment Pt got out of bed without assistance but did need a reminder not to get out around the bed rail but lower it first. Pt walked SBA for safety to gym. Pt worked on hand strengthening and coordination with red theraputty exercises. She also manipulated graded clothespins and had difficulty with the hardest ones with her L hand. Reviewed activities and games that she could do with her family on discharge to continue working on strength and coordination. Pt c/o soreness lateral aspect of L wrist - there is a point of her plaster cast there. Provided a pad of temperfoam which she said eased the soreness. Pt walked back to room SBA and got into bed, waiting for PT. All needs met. Education OT Patient Education: Exercise program, Home exercise program, Purpose of tx/ functional activities Teaching Recipient: Patient Teaching Methods: Discussion Response to Teaching: Verbalize Understanding OT Short Term Goals Short Term Goals Time Frame: November 12, 2016 Grooming(FIM): 5 Toileting(FIM): 5 Toilet/Commode Transfer(FIM): 5 Additional Short Term Goals: 2-Verbalize Understanding, 3-ImproveStrength/Maurice 1=Demonstrate adherence to instructed precautions during ADL tasks. 2=Patient will verbalize/demonstrate understanding of assistive devices/ modifications for ADL. 3=Patient will improve strength/tolerance for activity to enable patient to perform ADL's. OT Supervisor Sandblaster Goals Fdc Goals Time Frame: Nov 26, 2016 Eating (FIM): 6 Eating (QC): 6 Groomin Oral Hygiene (QC): 6 Bathing(FIM): 6 Shower/Bathe Self (QC): 6 Upper Body Dressing(FIM): 6 Upper Body Dressing (QC): 6 Lower Body Dressing(FIM): 6 Lower Body Dressing (QC): 6 On/Off Footwear (QC): 6 Toileting(FIM): 6 Toileting Hygiene (QC): 6 Toilet/Commode Transfer(FIM): 6 Toilet/Commode Transfer (QC): 6 Shower Transfer(FIM): 6 Comprehension(FIM): 4 Expression (FIM): 4 Social Interaction(FIM): 6 Problem Solving(FIM): 4 Memory(FIM): 4 Additional Goals: 2-Verbalize Understanding, 3-ImproveStrength/Maurice 1=Demonstrate adherence to instructed precautions during ADL tasks. 2=Patient will verbalize/demonstrate understanding of assistive devices/ modifications for ADL. 3=Patient will improve strength/tolerance for activity to enable patient to perform ADL's. OT Education/Plan Problem List/Assessment Pt would benefit from skilled OT to increase her independence in basic self care to allow her to safely return to her home to live with family and to decrease caregiver burden. Discharge Recommendations Plan/Recommendations: Continue POC Treatment Plan/Plan of Care Patient would benefit from OT for education, treatment and training to promote independence in ADL's, mobility, safety and/or upper extremity function for ADL' s. Plan of Care: ADL Retraining, Functional Mobility, Group Exercise/Act as Ind ( education, exercise, memory, activity tolerance, socialization, problem solving) , UE Funct Exercise/Act, UE Neuromus Re-Ed/Coord Treatment Duration: Nov 26, 2016 Visits Per Week: 10-11 Minutes/Day (M-F): 75-90 Minutes/Day (Sat/[place]): PRN Agreement: Yes Rehab Potential: Good Time/GCodes Start Time: 13:00 Stop Time: 13:25 Total Time Billed (hr/min): 25 Billed Treatment Time visit, 25 minutes exercise OSBALDO MORTON OT November 07, 2016 15:00
--- NOTE | 2016-11-07 15:25 | Physical Therapy Daily Note ---
PT Daily Note-Current Subjective Pt laying upright in bed upon arrival. Pt agrees to PT this afternoon. Mental Status Patient Orientation: Person, Place, Time, Situation Attachments: Other-See Comments (Cervical Collar) Transfers Functional [place] Measure 0=Not Assessed/NA 4=Minimal Assistance 1=Total Assistance 5=Supervision or Setup 2=Maximal Assistance 6=Modified [place] 3=Moderate Assistance 7=Complete IndependenceIRFPAI Quality Coding Scale 6 Independent with activity with or without an assistive device 5 Patient requires set up or clean up by helper. Patient completes activity by themselves 4 Supervision or touching assist (CGA). [place] provide cues , steadying assist 3 The helper provides less than half the effort to complete the activity 2 The helper provides more than half the effort to complete the activity 1 Dependent. The helper does all the effort to complete an activity 7 Patient refused to complete or attempt activity 9 The patient did not perform the activity before the current illness or injury 88 Not attempted due to Medical conditions or safety concerns Scootin Rollin Roll Left to Right (QC): 5 Supine to/from Sit: 5 Sit to/from Stand: 6 Sit to Lying (QC): 6 Sit to Stand (QC): 6 Weight Bearing Weight Bearing Restriction: Full Weight Bearing Location Restriction: LE Bilateral Gait Training Does the Patient Walk?: Yes Distance (FIM): 3=150 ft Distance: 1200' Walk 10 feet (QC): 5 Walk 50 ft with 2 Turns(QC): 5 Walk 150 ft (QC): 5 Walking 10ft/uneven surface-QC: 5 Gait Level of Assist: 5 Gait Persons Needed: 1 Gait Assistive Device: None Pt walks with normal jay but slight drifting to R while walking but able to recover independently. Wheelchair Training Does the Pt Use a Wheelchair?: No Stair Training Stair Training: Handrails/: 1 handrail #of Steps: 4 (Outside in garden area) 1 Step (curb) (QC): 5 4 Steps (QC): 5 Stairs: Pattern: Step to Level of Assist: 5 Treatments Pt transfers from bed to standing w/o AD at SBA. Pt ambulates community distances w/o AD from DEU to [facility] Garden Area on varying surfaces, down stairs and ramp. Pt also walks through [employer] for problem solving, balance and ambulation activities. Pt returns to room at end of walk to rest at EOB with all needs met. Assessment Current Status: Good Progress Pt has increased activity tolerance, strength, balance and memory skills during Therapy. PT Short Term Goals Short Term Goals Time Frame: November 12, 2016 Gait (FIM): 4 Distance (FIM): 3=150 ft Gait Assistive Device: FWW PT Penitentiary Goals Penitentiary Goals PT [place] Supervisor Goals Time Frame: Nov 26, 2016 Transfers (B,C,W/C) (FIM): 7 Sit to Lying (QC): 6 Lying-Sitting on Side/Bed(QC): 6 Sit to Stand (QC): 6 Rollin Roll Left to Right (QC): 6 Chair/Qea-cn-Qbate Xfer(QC): 6 Car Transfer (QC): 6 Does the Patient Walk: Yes Gait (FIM): 6 Gait distance (FIM): 3=150 ft Walk 10 feet (QC): 6 Walk 10ft-Uneven Surface(QC): 6 Walk 50ft with 2 Turns (QC): 6 Walk 150 ft (QC): 6 Gait Level of Assist: 6 Gait Assistive Device: FWW Does the Pt use WC or Scooter?: No Stairs (FIM): 6 # of Steps: 12 1 Step (curb) (QC): 6 4 Steps (QC): 6 12 Steps (QC): 6 Stairs Level Of Assist: 6 Picking up an Object (QC): 5 PT Plan Problem List Problem List: Safety Treatment/Plan Treatment Plan: Continue Plan of Care Treatment Plan: Bed Mobility, Education, Functional Activity [place], Functional Strength, Group Therapy, Gait, Safety, Therapeutic Exercise, Transfers Treatment Duration: Nov 26, 2016 Visits Per Week: 10-15 Minutes/Day (M-F): 60-90 Minutes/Day (Sat/[place]): prn Safety Risks/Education Patient Education: Gait Training, Transfer Techniques, Correct Positioning, Safety Issues Teaching Recipient: Patient Teaching Methods: Discussion Response to Teaching: Verbalize Understanding Time/GCodes Time In: 1330 Time Out: 1415 Total Billed Treatment Time: 45 Total Billed Treatment visit, GT X2 (30m) & FA (15m) BRIAN TORRES LINE PRODUCER November 07, 2016 15:25
--- NOTE | 2016-11-07 16:49 | Diagnostic Imaging Report ---
EXAMINATION: Three views of the thoracic spine. INDICATION: Back pain. FINDINGS: There is satisfactory alignment of the thoracic spine. The vertebral body heights are preserved. The disc heights are also preserved. The paraspinal soft tissues appear unremarkable. IMPRESSION: Unremarkable exam. Dictated by: Dictated on workstation # [id number]
[2016-11-07 18:07] VITALS: BP 103/66
[2016-11-08 06:00] VITALS: BP 120/80
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
[2016-11-08] MEDS: ACETAMINOPHEN 325 MG TABLET/CAPLET (TYLENOL) PO PRN (08:10)
[2016-11-08] MEDS ORDERED: ACET325T49 PO (08:39)
--- NOTE | 2016-11-08 08:56 | Physical Therapy Daily Note ---
PT Daily Note-Current Subjective Pt was laying Supine in bed upon arrival. Pt reports feeling excited to discharge today. Pt agrees to PT tx. Pain Location: No Pain Reported Mental Status Patient Orientation: Person, Place, Time, Situation Transfers Functional [place] Measure 0=Not Assessed/NA 4=Minimal Assistance 1=Total Assistance 5=Supervision or Setup 2=Maximal Assistance 6=Modified [place] 3=Moderate Assistance 7=Complete IndependenceIRFPAI Quality Coding Scale 6 Independent with activity with or without an assistive device 5 Patient requires set up or clean up by helper. Patient completes activity by themselves 4 Supervision or touching assist (CGA). [place] provide cues , steadying assist 3 The helper provides less than half the effort to complete the activity 2 The helper provides more than half the effort to complete the activity 1 Dependent. The helper does all the effort to complete an activity 7 Patient refused to complete or attempt activity 9 The patient did not perform the activity before the current illness or injury 88 Not attempted due to Medical conditions or safety concerns Transfers (B, C, W/C) (FIM): 6 Scootin Rollin Roll Left to Right (QC): 6 Supine to/from Sit: 7 Sit to/from Stand: 7 Sit to Lying (QC): 6 Sit to Stand (QC): 6 Chair/Uvq-bu-Qewdn Xfer(QC): 6 Bed to/from Chair: 7 Weight Bearing Weight Bearing Restriction: Full Weight Bearing Location Restriction: LE Bilateral Gait Training Does the Patient Walk?: Yes Gait (FIM): 6 Distance (FIM): 3=150 ft Distance: 350' Walk 10 feet (QC): 6 Walk 50 ft with 2 Turns(QC): 6 Walk 150 ft (QC): 6 Walking 10ft/uneven surface-QC: 6 Gait Level of Assist: 6 Gait Persons Needed: 1 Gait Assistive Device: None Pt walks Mod I without AD. Pt has occasional drift to R while walking but pt is able to self-correct. Pt is safe while ambulating. Wheelchair Training Does the Pt Use a Wheelchair?: No Stair Training Stair Training: Handrails/: No handrail Stairs (FIM): 5 #of Steps: 12 1 Step (curb) (QC): 6 4 Steps (QC): 5 12 Steps (QC): 5 Stairs: Pattern: Step to Level of Assist: 5 Pt occasionally steadies self by touching wall or handrail but no LOB, able to steady independently. Balance Picking up an Object (QC): 5 Special Test Comments Close SBA since pt & mother had voiced dizziness occasionally when bending over. Today, pt reported no dizziness when bending over though. Treatments Pt completed transfers at Indep. with only slight difficulty rolling w/L arm in cast. Pt ambulates w/o AD at Mod I. status. Pt occasionally drifts to R but pt self-corrects. Pt completes 12 stairs at SBA, picking up object off floor & walking on varying surface Indep. Pt returns to room for bed mobility and pt completes Indep. as well. Pt left with all needs met at end of tx and discharging this morning. Assessment Current Status: Good Progress Pt doesn't have safe concerns and has made progress with transfers, mobility and activity tolerance. Pt is excited to be going home. PT Short Term Goals Short Term Goals Time Frame: November 12, 2016 Gait (FIM): 4 Distance (FIM): 3=150 ft Gait Assistive Device: FWW PT Coach Mechanic Goals Usp Goals PT Usp Goals Time Frame: Nov 26, 2016 Transfers (B,C,W/C) (FIM): 7 Sit to Lying (QC): 6 Lying-Sitting on Side/Bed(QC): 6 Sit to Stand (QC): 6 Rollin Roll Left to Right (QC): 6 Chair/Psd-va-Zunqr Xfer(QC): 6 Car Transfer (QC): 6 Does the Patient Walk: Yes Gait (FIM): 6 Gait distance (FIM): 3=150 ft Walk 10 feet (QC): 6 Walk 10ft-Uneven Surface(QC): 6 Walk 50ft with 2 Turns (QC): 6 Walk 150 ft (QC): 6 Gait Level of Assist: 6 Gait Assistive Device: FWW Does the Pt use WC or Scooter?: No Stairs (FIM): 6 # of Steps: 12 1 Step (curb) (QC): 6 4 Steps (QC): 6 12 Steps (QC): 6 Stairs Level Of Assist: 6 Picking up an Object (QC): 5 PT Plan Problem List Problem List: Balance Treatment/Plan Treatment Plan: Continue Plan of Care Treatment Plan: Bed Mobility, Education, Functional Activity Maurice, Functional Strength, Group Therapy, Gait, Safety, Therapeutic Exercise, Transfers Treatment Duration: Nov 26, 2016 Visits Per Week: 10-15 Minutes/Day (M-F): 60-90 Minutes/Day (Sat/[place]): prn Safety Risks/Education Patient Education: Gait Training, Transfer Techniques, Steps, Correct Positioning, Disease Process, Safety Issues Teaching Recipient: Patient, Family Teaching Methods: Discussion Response to Teaching: Verbalize Understanding Time/GCodes Time In: 800 Time Out: 825 Total Billed Treatment Time: 25 Total Billed Treatment visit, FA (15m) & GT (10m) BRIAN TORRES PTA November 08, 2016 08:56
--- NOTE | 2016-11-08 09:30 | Occupational Ther Daily Note ---
OT Current Status-Daily Note Subjective Pt seen in room, up in bed, agreeable to OT. No pain mentioned. Mother present throughout tx. Appearance Alert, cooperative. Looking forward to going home today. Mental Status/Objective Functional [place] Measure 0=Not Assessed/NA 4=Minimal Assistance 1=Total Assistance 5=Supervision or Setup 2=Maximal Assistance 6=Modified [place] 3=Moderate Assistance 7=Complete [place] ADL-Treatment Reminder to patient and mother that she still needs SBA when walking and standing during ADLs, for safety. Pt educ for mother on how to put pads back on cervical collar. Functional [place] Measure 0=Not Assessed/NA 4=Minimal Assistance 1=Total Assistance 5=Supervision or Setup 2=Maximal Assistance 6=Modified [place] 3=Moderate Assistance 7=Complete IndependenceIRFPAI Quality Coding Scale 6 Independent with activity with or without an assistive device 5 Patient requires set up or clean up by helper. Patient completes activity by themselves 4 Supervision or touching assist (CGA). [place] provide cues , steadying assist 3 The helper provides less than half the effort to complete the activity 2 The helper provides more than half the effort to complete the activity 1 Dependent. The helper does all the effort to complete an activity 7 Patient refused to complete or attempt activity 9 The patient did not perform the activity before the current illness or injury 88 Not attempted due to Medical conditions or safety concerns Eating (FIM): 7 (Able top open packages, cut food. No difficulties feeding herself.) Eating (QC): 6 Grooming (FIM): 5 (SBA for safety when standing at sink to brush teeth and hair. Washed face and hands in shower. ) Oral Hygiene (QC): 4 (SBA) Bathing (FIM): 4 (Setup to put plastic bag on L arm (splinted). Help to wash R arm since L arm in plastic bag. Setup for rest of shower, SBA when standing to wash. Washed and dried all other parts. SHower bench, grab bars, hand held shower. ) Shower/Bathe Self (QC): 3 Upper Body (FIM): 5 (Setup. Took bra off and put clean one on with mod technique of hooking it in front. Skilled cues to get shirt off (good arm first ) - able to get it off cervical collar. ) Upper Body Dressing (QC): 5 Lower Body Dressing (FIM): 5 (SBA when standing to pull pants up. Setup. Able to tie shoes with a little difficulty but got it done. Socks off and on without trouble. ) Lower Body Dressing (QC): 4 (SBA when standing to pull pants up/down) On/Off Footwear (QC): 5 (setup) Toileting (FIM): 5 (SBA when standing to pull pants up/down. Managed hygiene. Tall toilet, grab bars) Toileting Hygiene (QC): 4 (SBA) Toilet/Commode Transfer (FIM): 5 (SBA getting off/on toilet. Grab bar, tall toilet) Toilet Transfer (QC): 4 (SBA) Shower Transfer(FIM): 5 (SBA, shower bench, grab bars) Other Treatment Reviewed activities for HEP for coordination with patient and mother. All questions answered. Education OT Patient Education: Home exercise program, Modified ADL techniques, Progress toward Goal/Update tx plan Teaching Recipient: Patient, Family Teaching Methods: Discussion Response to Teaching: Verbalize Understanding OT Short Term Goals Short Term Goals Time Frame: November 12, 2016 Grooming(FIM): 5 (met) Toileting(FIM): 5 (met) Toilet/Commode Transfer(FIM): 5 (met) Additional Short Term Goals: 2-Verbalize Understanding, 3-ImproveStrength/Maurice 1=Demonstrate adherence to instructed precautions during ADL tasks. 2=Patient will verbalize/demonstrate understanding of assistive devices/ modifications for ADL. 3=Patient will improve strength/tolerance for activity to enable patient to perform ADL's. OT Senior Living Goals Senior Living Goals Time Frame: Nov 26, 2016 Eating (FIM): 6 (met 11-08-17) Eating (QC): 6 (met 11-08-17) Groomin (not met 11-08-17) Oral Hygiene (QC): 6 (not met 11-08-17) Bathing(FIM): 6 (not met 11-08-17) Shower/Bathe Self (QC): 6 (not met --17) Upper Body Dressing(FIM): 6 (not met --17) Upper Body Dressing (QC): 6 (not met 11-08-17) Lower Body Dressing(FIM): 6 (not met 5-26-17) Lower Body Dressing (QC): 6 (not met 11-08-16) On/Off Footwear (QC): 6 (not met 11-08-16) Toileting(FIM): 6 (not met 11-08-16) Toileting Hygiene (QC): 6 (not met 11-08-16) Toilet/Commode Transfer(FIM): 6 (not met 11-08-16) Toilet/Commode Transfer (QC): 6 (not met 11-08-16) Shower Transfer(FIM): 6 (not met 11-08-16) Comprehension(FIM): 4 Expression (FIM): 4 Social Interaction(FIM): 6 Problem Solving(FIM): 4 Memory(FIM): 4 Additional Goals: 2-Verbalize Understanding, 3-ImproveStrength/Maurice 1=Demonstrate adherence to instructed precautions during ADL tasks. 2=Patient will verbalize/demonstrate understanding of assistive devices/ modifications for ADL. 3=Patient will improve strength/tolerance for activity to enable patient to perform ADL's. OT Education/Plan Problem List/Assessment Pt would benefit from skilled OT to increase her independence in basic self care to allow her to safely return to her home to live with family and to decrease caregiver burden. Discharge Recommendations Plan/Recommendations: Discharge/Goals Met Therapy D/C Recommendations: Occupational Therapy Home Care Treatment Plan/Plan of Care Patient would benefit from OT for education, treatment and training to promote independence in ADL's, mobility, safety and/or upper extremity function for ADL' s. Plan of Care: ADL Retraining, Functional Mobility, Group Exercise/Act as Ind ( education, exercise, memory, activity tolerance, socialization, problem solving) , UE Funct Exercise/Act, UE Neuromus Re-Ed/Coord Treatment Duration: Nov 26, 2016 Visits Per Week: 10-11 Minutes/Day (M-F): 75-90 Minutes/Day (Sat/[place]): PRN Agreement: Yes Rehab Potential: Good Time/GCodes Start Time: 08:30 Stop Time: 09:10 Total Time Billed (hr/min): 40 Billed Treatment Time visit, 40 minutes ADL OSBALDO MORTON OT November 08, 2016 09:30
--- NOTE | 2016-11-08 09:38 | Speech Therapy Daily Note ---
Speech Daily Progress Note Subjective The patient was seated upright in bed upon entrance. The patient's mom was at bedside. The patient was agreeable to participation in the cognitive treatment session on this date. Objective As the patient is scheduled to discharge on this date, a re-evaluation of cognitive functions was completed with the following results: - Orientation: The patient was independently oriented to month, day of week, date, year, and location. - Language: The patient was able to name three black and white photographs and items in her room. Additionally, the patient was able to repeat single words and short phrases. - Attention: The patient continues to demonstrated reduced attention, as redirection to task and topic was frequently required. - Memory: The patient was able to recall three of three words immediately and two of three words following a five minute delay. The patient has demonstrated increased improvement throughout her stay on the rehabilitation unit. The clinician is recommending continued speech pathology support on an outpatient basis to focus on attention and functional problem solving. Assessment Assessment Current Status: Good Progress Treatment Plan Continue Plan of Care Communication Comprehension: 4 Expression: 5 Social Cognition Social Interaction: 6 Problem Solvin Memory: 4 Speech Short Term Goals Short Term Goals Short Term Goals 1. The patient will display 90% accuracy with simple orientation information with the use of an external aide. 2. The patient will demonstrate 90% accuracy with safety problem solving, independently. 3. The patient will attend to a therapy task for a period of three minutes ( uninterrupted). 4. The patient will display 80% accuracy with structured word-finding tasks with mild clinician verbal cueing. Time Frame-STG: Two Weeks Speech Operations Consultant Goals Intermediate Goals 1. The patient will demonstrate improved cognitive linguistic skills for increased function and safety with ADL's in the least restrictive setting. Comprehension: 4 Expression: 4 Social Interaction: 6 Problem Solvin Memory: 4 Speech-Plan Treatment Plan Speech Therapy Treatment Plan: Discontinue ST, Goals Met As the patient has met goal initially placed, she will be discharged from speech pathology at this time. Treatment Duration: Nov 26, 2016 Rehab Potential: Good Safety Risks/Education Teaching Recipient: Patient, Family Teaching Methods: Discussion Response to Teaching: Verbalize Understanding Education Topics Provided: Results, Recommendations, Plan of Care Time Speech Therapy Time In: 09:15 Speech Therapy Time Out: 09:30 Total Billed Time: 15 Billed Treatment Time 1VASHTI ELIZABETH ST November 08, 2016 09:38
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
[2016-11-08 11:11] VITALS: BP 118/80
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
== END 2016-11-08 11:00 | disposition home or self-care (01) | DRG 941 ==
LOC: EEVIPCON 13:10 → ENPENDDIS 11-08 13:00
PROVIDERS: ADMIT Physical Medicine & Rehabilitation; ATTEND Physical Medicine & Rehabilitation
PROC: 0PSL04Z Reposition Left Ulna with Internal Fixation Device, Open Approach (ICD-10-PCS; principal; 2016-11-04 15:20)
DX: S06.6X1D Traumatic subarachnoid hemorrhage with loss of consciousness of 30 minutes or less, subsequent encounter (principal); S12.601D Unspecified nondisplaced fracture of seventh cervical vertebra, subsequent encounter for fracture with routine healing; S22.019D Unspecified fracture of first thoracic vertebra, subsequent encounter for fracture with routine healing; S22.029D Unspecified fracture of second thoracic vertebra, subsequent encounter for fracture with routine healing; S52.032A Displaced fracture of olecranon process with intraarticular extension of left ulna, initial encounter for closed fracture; S01.01XD Laceration without foreign body of scalp, subsequent encounter; S71.111D Laceration without foreign body, right thigh, subsequent encounter; M54.5 Low back pain; F15.10 Other stimulant abuse, uncomplicated; V89.2XXD Person injured in unspecified motor-vehicle accident, traffic, subsequent encounter
CPT/HCPCS: 36415; 72072; 73080; 80053; 84703; 85025; 87081

== ENCOUNTER 2016-11-13 13:12 | Outpatient (RCR) | payer OTHER, MEDICAID ==
[~2016-11-13 13:12] MED LIST: ACET325T49 PO; ENOX40DI8 SQ; OXYC5SOL19 PO
== END 2016-12-18 13:50 | disposition home or self-care (01) ==
PROVIDERS: ATTEND Family Medicine
DX: S06.9X9A Unspecified intracranial injury with loss of consciousness of unspecified duration, initial encounter (principal); G31.84 Mild cognitive impairment of uncertain or unknown etiology; V48.5XXA Car driver injured in noncollision transport accident in traffic accident, initial encounter